=== PATIENT | female | born 1980 | race Caucasian/White ===

== ENCOUNTER 2021-07-27 14:11 | Outpatient (REF) | payer OTHER, SELFPAY ==
[2021-07-27 15:02] LABS: Influenza A PCR NEGATIVE (Negative); Influenza B PCR NEGATIVE (Negative); Resp Syncy Virus RNA Qual PCR NEGATIVE (Negative); SARS COV2 PCR INHOUSE NEGATIVE (Negative)
== END 2021-07-27 14:12 | disposition home or self-care (01) ==
LOC: HO.LNP 14:11
PROVIDERS: Visit Provider Physician Assistant Medical
DX: N39.0 Urinary tract infection, site not specified (principal); J06.9 Acute upper respiratory infection, unspecified; R30.0 Dysuria; Z20.822 Contact with and (suspected) exposure to COVID-19
CPT/HCPCS: 0241U; 87086

== ENCOUNTER 2021-11-10 14:53 | Emergency (ER) | payer OTHER, SELFPAY ==
--- NOTE | 2021-11-10 | ECG_ITS ---
Test Reason : dizziness Blood Pressure : / mmHG Vent. Rate : 083 BPM Atrial Rate : 083 BPM P-R Int : 142 ms QRS Dur : 100 ms QT Int : 382 ms P-R-T Axes : 054 -26 052 degrees QTc Int : 448 ms Normal sinus rhythm Incomplete right bundle branch block Borderline ECG No previous ECGs available Referred By: Generic ED Physician Electronically Signed By:Ender Charles
--- NOTE | ~2021-11-10 | XR_ITS ---
EXAMINATION: XR CHEST CLINICAL INFORMATION: Dizziness. COMPARISON: None TECHNIQUE: 2 views of the chest were obtained. FINDINGS: No significant abnormality is noted involving the heart, lungs, mediastinum, bony thorax or soft tissues. XR/XR chest 2V IMPRESSION: Unremarkable chest examination.
--- NOTE | ~2021-11-10 | CT_ITS ---
EXAMINATION: CT HEAD WITHOUT CONTRAST CLINICAL INFORMATION: Dizziness COMPARISON: None TECHNIQUE: Contiguous axial imaging was performed from the skull base to vertex without intravenous administration of contrast. This CT examination was performed using dose optimization techniques as appropriate, variously including the following: *Automated exposure control *Adjustment of mA and/or kV according to patient size (this includes techniques or standardized protocols for targeted exams where dose is matched to indication/reason for exam; i.e. extremities or head) *Use of iterative reconstruction technique DLP: 739 mGy-cm FINDINGS: There is no evidence of acute intracranial hemorrhage or territorial infarction. No abnormal mass effect or midline shift is seen. Cole to white matter differentiation is well preserved. No extra-axial fluid collections are identified. The ventricles are normal in size. There is no abnormal attenuation within the brain parenchyma. The osseous structures and soft tissues are normal. Left maxillary sinus air-fluid level. Remaining visualized mastoid air cells and paranasal sinuses are clear. CT/CT head/brain wo con IMPRESSION: No acute intracranial pathology. Left maxillary sinus air-fluid level could reflect acute sinusitis.
[2021-11-10 16:28] LABS: MANUAL DIFF FLAG NO
[2021-11-10 16:30] LABS: Basophils Percent Auto 0.3 % (0-2); Eosinophils Absolute Auto 0.2 X10*3/uL (0.0-0.4); Eosinophils Percent Auto 1.8 % (0-4); Hematocrit 38.6 % (37.0-47.0); Hemoglobin 12.3 g/dl (12.0-16.0); Imm Gran Abs Auto 0.05 X10*3/uL (0.00-0.03); Imm Gran Pct Auto 0.4 % (0.0-0.4); Lymphocytes Absolute Auto 3.1 X10*3/uL (1.2-4.9); Lymphocytes Percent Auto 27.9 % (20-40); Mean Corpuscular HGB Conc 31.9 g/dl (31.0-35.0); Mean Corpuscular Volume 84.6 fL (80.0-98.0); Mean Platelet Volume 9.4 fL (9.4-12.3); Monocytes Absolute Auto 0.7 X10*3/uL (0.1-1.2); Monocytes Percent Auto 6.2 % (2-11); Neutrophils Absolute Auto 7.1 x10*3/uL (2.0-8.3); Neutrophils Percent Auto 63.4 % (45-73); Platelet Count 365 X10*3/uL (160-400); Red Blood Count 4.56 X10*6/uL (4.20-5.50); Red Cell Distribution Width 14.3 % (11.0-16.0); White Blood Count 11.1 X10*3/uL (4.8-10.8)
[2021-11-10 16:33] VITALS: BP 147/92; PULSE 91; RESP 18; TEMP 36.8; O2SAT 95; BMI 34.3
[2021-11-10 16:50] LABS: Anion Gap 14 (12-20); Blood Urea Nitrogen 19 mg/dL (9-16); Calcium 9.3 mg/dL (8.4-10.2); Carbon Dioxide 26 mmol/L (22-29); Chloride 103 mmol/L (96-108); Creatinine Clr Calc Pharmacy 97.7; Estimated Glomerular Filt Rate > 60; Glucose Random 137 mg/dL (60-115); Potassium 4.3 mmol/L (3.3-5.1); Sodium 139 mmol/L (135-145)
[2021-11-10 16:56] LABS: Troponin-I High Sensitivity < 3.5 ng/L (<3.5-17.0)
--- NOTE | 2021-11-10 19:19 | ED.DIZZY ---
HPI - Dizziness General Chief Complaint: Dizziness Stated Complaint: Dizziness Time Seen by Provider: 11/10/21 19:18 Source: patient and family (Mother) Mode of arrival: ambulatory Limitations: no limitations History of Present Illness HPI Narrative: 41 years old female came in for evaluation of dizziness. Patient's symptoms started 3 days ago as dizziness which is feeling unbalanced specially with changing position, patient been having also headache since she has been in the ED for 6 hours. Feels nauseous but no vomiting, no ear problems, no weakness or numbness otherwise. No family history of stroke at young age. Related Data Previous Rx's Medication Instructions Recorded lorazepam 1 mg tablet (Ativan) 1 mg PO DAILY PRN #30 tab 10/03/20 benzonatate 100 mg capsule 100 mg PO TID PRN #30 cap 07/27/21 prednisone 50 mg tablet 50 mg PO DAILY 5 Days #5 tab 07/27/21 venlafaxine 150 mg 150 mg PO BEDTIME #90 cap 08/29/21 capsule,extended release 24 hr dextroamphetamine-amphetamine 10 10 mg PO BID PRN #60 tab 09/11/21 mg tablet (Adderall) dextroamphetamine-amphetamine ER 30 mg PO QAM #30 cap 09/11/21 30 mg 24hr capsule,extend release (Adderall XR) amoxicillin 875 mg-potassium 1 tab PO BID #14 tab 11/10/21 clavulanate 125 mg tablet meclizine 25 mg tablet 25 mg PO BID PRN #14 tab 11/10/21 meclizine 25 mg tablet 25 mg PO BID PRN #20 tab 11/10/21 Allergies Allergy/AdvReac Type Severity Reaction Status Date / Time No Known Allergies Allergy Verified 07/27/21 11:24 Review of Systems Review of Systems: All other systems are reviewed and are negative Constitutional: Reports as per HPI and Reports no additional constitutional complaints Eyes: Reports as per HPI and Reports no additional eye complaints Reports system reviewed and no additional complaints, except as documented Cardiovascular: Reports as per HPI and Reports no additional cardiovascular complaints Respiratory: Reports as per HPI and Reports no additional respiratory complaints Gastrointestinal: Reports as per HPI and Reports no additional gastrointestinal complaints Genitourinary: Reports no additional female genitourinary complaints Musculoskeletal: Reports no additional musculoskeletal complaints Skin/Breast: Reports system reviewed and no additional complaints, except as docu Psychiatric: Reports no additional psychiatric complaints Endocrine: Reports no additional endocrine complaints Hematologic/Lymphatic: Reports no additional hematologic/lymphatic complaints Allergic/Immunologic: Reports no additional allergic/immunologic complaints Reports system reviewed and no additional complaints, except as documented and Reports Abnormal speech present [facility] Past Medical History Medical History ADHD Anxiety and depression Obesity TIA (transient ischemic attack) Tobacco abuse Surgical History History of prior ablation treatment LAP-BAND surgery status Family History Family History Father Myocardial infarction History of quadruple bypass CKD (chronic kidney disease) Mother Healthy adult Paternal Grandmother Liver cancer Maternal Aunt Melanoma Maternal Grandmother Stroke Liver cancer Paternal Grandfather Myocardial infarction Social History Social History Housing: House Patient Tobacco Use Status: Current everyday Tobacco user e-Cigarette/Vaping Use: Never Used Second Hand Smoke Exposure: No Advance Directives: No Advance Directives Information Provided: Yes Patient : No service: No Current occupational status: employed Physical Exam Vital Signs: Vital Signs: Last Vital Signs Temp 98.2 F 11/10/21 16:33 Pulse 76 11/10/21 20:09 Resp 18 11/10/21 20:09 BP 127/71 11/10/21 20:09 Pulse Ox 98 11/10/21 20:09 BMI result Body Mass Index 34.3 Vital signs have been reviewed as appeared to be correct. Blood pressure normal. Heart rate normal. Respiration rate normal. Temperature normal. Oxygen saturation normal. Appearance: Alert. Oriented X3. No acute distress. Head: Normal external exam. Normocephalic. Atraumatic. No Best signs noted. No raccoon eyes noted Eyes: PERRLA. EOMI. Conjunctiva and sclera normal. Eyelids normal. ENT: TM's Normal. Pharynx normal. Uvula midline. Moist mucous membranes. No trismus noted. No drooling noted. No muffled voice noted. Neck: Normal inspection. Neck supple. FROM. No adenopathy. Thyroid Normal. No meningeal signs. No neck mass noted. CVS: Normal heart rate and rhythm. Heart sound normal. No murmurs noted. Pulses normal throughout. Respiratory: No respiratory distress. Painless inspiration. Breath sounds normal. No wheezes/rales/rhonchi noted. Chest nontender. No accessory muscle usage noted or decreased air movement noted. Abdomen: Soft and nontender. Bowel sounds normal in all 4 quadrants. No distention noted. No organomegaly noted. No visible injury noted. Back: No CVA tenderness. Full range of motion noted. Skin: Skin warm and dry. Normal skin color. Normal skin turgor. No rashes/lesions/lacerations noted. Extremities: No lower extremity edema. Extremities exhibit normal range of motion. Extremities nontender. Neuro: Oriented X 3. No nystagmus Cranial nerve exam: II-XII are grossly intact No motor deficit. No sensory deficit. Reflexes normal. No [id number] dysmetria test, able to walk steady gait, able to walk toe to heal with steady gait. Patient feels dizzy if she quickly turn her head or change her position on exam. Course Course Course Narrative: Assessment and plan. 41-year-old female with no past medical history presented with 3 days of feeling dizzy and unbalanced, has a normal neuro exam, normal head CT, MRI is not available in this facility at this time. However given patient age and physical/neuro exam making posterior circulation problem is unfavorable. CT is showing possible left maxillary sinusitis. Will discharge the patient on Augmentin/meclizine/3 days off work for safety. [facility] - Dizziness Medical Records Attestation: I reviewed the patient's medical records. Lab Data Attestation: I reviewed the patient's lab results. Result diagrams: 11/10/21 16:13 11/10/21 16:13 Labs: Lab Results 11/10/21 11/10/21 11/10/21 Range/Units 16:13 16:13 16:13 WBC 11.1 H (4.8-10.8) X10*3/uL RBC 4.56 (4.20-5.50) X10*6/uL Hgb 12.3 (12.0-16.0) g/dl Hct 38.6 (37.0-47.0) % MCV 84.6 (80.0-98.0) fL MCH 27.0 (27.0-33.0) pg MCHC 31.9 (31.0-35.0) g/dl RDW 14.3 (11.0-16.0) % Plt Count 365 (160-400) X10*3/uL MPV 9.4 (9.4-12.3) fL Immature Gran % (Auto) 0.4 (0.0-0.4) % Neut % (Auto) 63.4 (45-73) % Lymph % (Auto) 27.9 (20-40) % [place] % (Auto) 6.2 (2-11) % Eos % (Auto) 1.8 (0-4) % Baso % (Auto) 0.3 (0-2) % Lymph # (Auto) 3.1 (1.2-4.9) X10*3/uL [place] # (Auto) 0.7 (0.1-1.2) X10*3/uL Eos # (Auto) 0.2 (0.0-0.4) X10*3/uL Baso # (Auto) 0.0 (0.0-0.2) X10*3/uL Abs Immat Gran (auto) 0.05 H (0.00-0.03) X10*3/uL Absolute Neuts (auto) 7.1 (2.0-8.3) x10*3/uL Absolute Nucleated RBC 0.000 (0.0-0.012) X10*3/uL Nucleated RBC % (auto) 0.0 (0.0-0.2) /100WBC Sodium 139 (135-145) mmol/L Potassium 4.3 (3.3-5.1) mmol/L Chloride 103 (96-108) mmol/L Carbon Dioxide 26 (22-29) mmol/L Anion Gap 14 (12-20) BUN 19 H (9-16) mg/dL Creatinine 0.81 (0.5-1.4) mg/dL Estim Creat Clear Calc 97.7 Estimated GFR > 60 Random Glucose 137 H (60-115) mg/dL Calcium 9.3 (8.4-10.2) mg/dL Troponin I High Sens < 3.5 (<3.5-17.0) ng/L Urine Color Urine Appearance Urine pH (5.0-8.0) Ur Specific [place] (1.005-1.025) Urine Protein (NEG-TRACE) MG/DL Urine Glucose (UA) (NEG) MG/DL Urine Ketones (NEG) MG/DL Urine Blood (NEG) Urine Nitrite (NEG) Ur Leukocyte Esterase (NEG) Urine Test (NEGATIVE) 11/10/21 11/10/21 Range/Units 20:00 20:00 WBC (4.8-10.8) X10*3/uL RBC (4.20-5.50) X10*6/uL Hgb (12.0-16.0) g/dl Hct (37.0-47.0) % MCV (80.0-98.0) fL MCH (27.0-33.0) pg MCHC (31.0-35.0) g/dl RDW (11.0-16.0) % Plt Count (160-400) X10*3/uL MPV (9.4-12.3) fL Immature Gran % (Auto) (0.0-0.4) % Neut % (Auto) (45-73) % Lymph % (Auto) (20-40) % [place] % (Auto) (2-11) % Eos % (Auto) (0-4) % Baso % (Auto) (0-2) % Lymph # (Auto) (1.2-4.9) X10*3/uL [place] # (Auto) (0.1-1.2) X10*3/uL Eos # (Auto) (0.0-0.4) X10*3/uL Baso # (Auto) (0.0-0.2) X10*3/uL Abs Immat Gran (auto) (0.00-0.03) X10*3/uL Absolute Neuts (auto) (2.0-8.3) x10*3/uL Absolute Nucleated RBC (0.0-0.012) X10*3/uL Nucleated RBC % (auto) (0.0-0.2) /100WBC Sodium (135-145) mmol/L Potassium (3.3-5.1) mmol/L Chloride (96-108) mmol/L Carbon Dioxide (22-29) mmol/L Anion Gap (12-20) BUN (9-16) mg/dL Creatinine (0.5-1.4) mg/dL Estim Creat Clear Calc Estimated GFR Random Glucose (60-115) mg/dL Calcium (8.4-10.2) mg/dL Troponin I High Sens (<3.5-17.0) ng/L Urine Color YELLOW Urine Appearance CLEAR Urine pH 5.5 (5.0-8.0) Ur Specific [place] >= 1.030 H (1.005-1.025) Urine Protein NEG (NEG-TRACE) MG/DL Urine Glucose (UA) NEG (NEG) MG/DL Urine Ketones NEG (NEG) MG/DL Urine Blood NEG (NEG) Urine Nitrite NEG (NEG) Ur Leukocyte Esterase NEG (NEG) Urine Test NEGATIVE (NEGATIVE) Imaging Data Chest x-ray: Attestation: I personally reviewed and interpreted this imaging study as follows: Radiologist's impression: Unremarkable chest examination. CT scan - head: Attestation: I personally reviewed and interpreted this imaging study as follows: Radiologist's impression: No acute intracranial pathology. ?Left maxillary sinus air-fluid level could reflect acute sinusitis. ECG Data Attestation: I personally reviewed and interpreted this ECG as follows: Interpretation: Normal sinus rhythm at 83 beats per minutes, normal intervals, no ST-T changes. Discharge Plan Discharge Clinical Impression: Peripheral vertigo, Acute maxillary sinusitis Patient Disposition: Home, Self-Care Instructions: Sinusitis (ED), Vertigo (ED) Prescriptions: New amoxicillin-pot clavulanate 875-125 mg tablet 1 tab PO BID Qty: 14 0RF meclizine 25 mg tablet 25 mg PO BID PRN (Reason: dizziness) Qty: 20 0RF meclizine 25 mg tablet 25 mg PO BID PRN (Reason: dizziness) Qty: 14 0RF No Action lorazepam [Ativan] 1 mg tablet 1 mg PO DAILY PRN (Reason: anxiety) Qty: 30 0RF Rx Instructions: 1-2 a month venlafaxine 150 mg capsule,extended release 24hr 150 mg PO BEDTIME Qty: 90 0RF dextroamphetamine-amphetamine [Adderall] 10 mg tablet 10 mg PO BID PRN (Reason: ADHD) Qty: 60 0RF Rx Instructions: administer doses at least 4-6 hours apart dextroamphetamine-amphetamine [Adderall XR] 30 mg capsule,extended release 24hr 30 mg PO QAM Qty: 30 0RF prednisone 50 mg tablet 50 mg PO DAILY 5 Days Qty: 5 0RF benzonatate 100 mg capsule 100 mg PO TID PRN (Reason: cough) Qty: 30 0RF Referrals: Po,Cullen Russell MD [Primary Care Provider] - 2 days Stand Alone Forms: Work/School Release
[2021-11-10] MEDS: Meclizine HCl 25 MG TABLET 50 MG PO (19:56)
[2021-11-10 20:07] LABS: Appearance Urine CLEAR; Color Urine YELLOW; Glucose Urine UA NEG (NEG); Leukocyte Esterase Urine NEG (NEG); Nitrite Urine NEG (NEG); PH 5.5 (5.0-8.0); Specific Gravity - Urine >= 1.030 (1.005-1.025); Urine Blood NEG (NEG); Urine Ketones NEG (NEG); Urine Protein NEG (NEG-TRACE)
[2021-11-10 20:09] VITALS: BP 127/71; PULSE 76; RESP 18; O2SAT 98
[2021-11-10 20:11] LABS: UPreg QC Valid YES; Urine Pregnancy NEGATIVE (NEGATIVE)
[2021-11-10] MEDS: Acetaminophen 325 MG TABLET 650 MG PO (20:38)
[2021-11-10] MEDS: Amoxicillin/Potassium Clav 875 MG TABLET PO (20:58)
== END 2021-11-10 21:11 | disposition home or self-care (01) ==
PROVIDERS: Emergency Provider Emergency Medicine; PCP Internal Medicine
DX: H81.399 Other peripheral vertigo, unspecified ear (principal); J01.00 Acute maxillary sinusitis, unspecified; F17.200 Nicotine dependence, unspecified, uncomplicated
CPT/HCPCS: 36415; 70450; 71046; 80048; 81003; 81025; 84484; 85025; 93005; 99284

== ENCOUNTER 2022-02-09 16:44 | Inpatient (IN) | payer OTHER, SELFPAY ==
--- NOTE | ~2022-02-09 | XR_ITS ---
EXAMINATION: XR CHEST CLINICAL INFORMATION: Dyspnea COMPARISON: Chest radiograph 11/10/2021 TECHNIQUE: Frontal view of the chest was obtained. FINDINGS: Clear lungs. No pleural effusion or pneumothorax. Normal cardiomediastinal silhouette. XR/XR chest 1V IMPRESSION: Unremarkable examination.
[2022-02-09 17:02] VITALS: BP 134/94; PULSE 92; RESP 26; TEMP 36.7; O2SAT 95; BMI 34.3
--- NOTE | 2022-02-09 17:07 | ECG_ITS ---
Test Reason : dyspnea Blood Pressure : / mmHG Vent. Rate : 082 BPM Atrial Rate : 082 BPM P-R Int : 140 ms QRS Dur : 100 ms QT Int : 372 ms P-R-T Axes : 053 -14 062 degrees QTc Int : 434 ms Normal sinus rhythm Incomplete right bundle branch block Borderline ECG When compared with ECG of 10-NOV-2021 16:12, No significant change was found Referred By: Generic ED Physician Electronically Signed By:KLAUDIA BASS MD
[2022-02-09 17:27] LABS: Hematocrit 39.4 % (37.0-47.0); Hemoglobin 12.8 g/dl (12.0-16.0); Mean Corpuscular HGB Conc 32.5 g/dl (31.0-35.0); Mean Corpuscular Hemoglobin 26.4 pg (27.0-33.0); Mean Corpuscular Volume 81.4 fL (80.0-98.0); Mean Platelet Volume 9.3 fL (9.4-12.3); Platelet Count 370 X10*3/uL (160-400); Red Blood Count 4.84 X10*6/uL (4.20-5.50); Red Cell Distribution Width 15.2 % (11.0-16.0); White Blood Count 6.9 X10*3/uL (4.8-10.8)
[2022-02-09 17:43] LABS: Anion Gap 15 (12-20); Blood Urea Nitrogen 13 mg/dL (9-16); Carbon Dioxide 23 mmol/L (22-29); Chloride 104 mmol/L (96-108); Creatinine Clr Calc Pharmacy 85.1; Estimated Glomerular Filt Rate > 60; Glucose Random 174 mg/dL (60-115); Potassium 3.4 mmol/L (3.3-5.1); Sodium 139 mmol/L (135-145)
[2022-02-09 17:50] LABS: Troponin-I High Sensitivity 3.5 ng/L (<3.5-17.0)
[2022-02-09 17:52] LABS: COVID-19 Test Negative (Negative)
--- NOTE | 2022-02-09 18:52 | ED.SOB ---
HPI - SOB/Dyspnea General Chief Complaint: Dyspnea Stated Complaint: SOB/chest pains Time Seen by Provider: 02/09/22 18:50 Source: patient Mode of arrival: ambulatory History of Present Illness HPI Narrative: 41-year-old female without significant past medical history presents with increasing shortness of breath since Tuesday and states that it was acute on onset not associated with any fever, chills, recent travel, use of control, calf swelling but states that she does occasionally smoke cigarettes. Otherwise, she denies any GI or symptoms and states that she COVID tested herself on Tuesday and she was negative. Related Data Previous Rx's Medication Instructions Recorded amoxicillin 875 mg-potassium 1 tab PO BID #14 tabs 11/10/21 clavulanate 125 mg tablet meclizine 25 mg tablet 25 mg PO BID PRN dizziness #20 tabs 11/10/21 dextroamphetamine-amphetamine ER 30 mg PO QAM #30 caps 11/16/21 30 mg 24hr capsule,extend release (Adderall XR) lorazepam 1 mg tablet (Ativan) 1 mg PO DAILY PRN anxiety #30 tabs 11/16/21 terbinafine HCl 250 mg tablet 250 mg PO DAILY #45 tabs 11/16/21 venlafaxine 150 mg 150 mg PO BEDTIME #90 caps 12/07/21 capsule,extended release 24 hr albuterol sulfate 90 mcg/actuation 2 puff inhalation Q6H PRN 02/09/22 aerosol inhaler (ProAir HFA) shortness of breath or wheezing 90 days #8.5 grams albuterol sulfate 90 mcg/actuation 2 puff inhalation Q4-6H PRN 02/09/22 aerosol inhaler (Ventolin HFA) shortness of breath or wheezing #8.5 grams dextroamphetamine-amphetamine 10 10 mg PO BID PRN ADHD #60 tabs 02/09/22 mg tablet (Adderall) prednisone 50 mg tablet 50 mg PO DAILY 4 days #4 tabs 02/09/22 Allergies Allergy/AdvReac Type Severity Reaction Status Date / Time No Known Allergies Allergy Verified 11/16/21 09:35 Review of Systems Review of Systems: Pertinent positives and negatives as stated in HPI 10 point review of systems is otherwise negative. [facility] Past Medical History Source: nursing notes reviewed Medical History TIA (transient ischemic attack) Surgical History History of prior ablation treatment History of tooth extraction LAP-BAND surgery status Family History Family History Father Myocardial infarction History of quadruple bypass CKD (chronic kidney disease) Mother Healthy adult Paternal Grandmother Liver cancer Maternal Aunt Melanoma Maternal Grandmother Stroke Liver cancer Paternal Grandfather Myocardial infarction Social History Social History Housing: House Alcohol intake: current Alcohol intake frequency: holidays/special occasions only Patient Tobacco Use Status: Current everyday Tobacco user Tobacco use type: Cigarette Cigarettes Per Day: 5 e-Cigarette/Vaping Use: Never Used Second Hand Smoke Exposure: Yes Advance Directives: No Advance Directives Information Provided: No service: No Current occupational status: employed Cognitive needs: No Hearing needs: No Vision needs: No Physical Exam Vital Signs: Vital Signs: Last Vital Signs Temp 98.1 F 02/09/22 19:08 Pulse 89 02/09/22 19:15 Resp 18 02/09/22 19:15 BP 149/90 H 02/09/22 19:08 Pulse Ox 96 02/09/22 19:08 O2 Del Method 02/09/22 19:08 BMI result Body Mass Index 34.3 VITAL SIGNS: Reviewed. GENERAL: Well developed, well nourished, in no acute distress. HEAD: Normocephalic/atraumatic EYES: PERRLA, EOMI EARS: Ext canals without abnormality OROPHARYNX: no oral lesions noted, posterior pharynx clear LUNGS: good inspiratory effort with expiratory wheeze noted bilaterally, no rhonchi or rales with tachypnea. SpO2<95> On 1 L of oxygen CARDIOVASCULAR: Regular rate and rhythm without noted murmurs, no JVD or lower extremity edema. ABDOMEN: Soft, non-tender, non-distended with bowel sounds. NEUROLOGIC: Alert and oriented x 4. Strength and sensation to light touch were grossly intact x 4. Course Course Course Narrative: 41-year-old female with history and clinical presentation suggestive of possible asthma exacerbation in the right setting, she does have a history of bronchitis, due to the acute onset also will rule out PE. Otherwise, review of initial investigations is negative for acute findings. D-dimer further cooperates the on likelihood of PE, will continue with albuterol treatments/Solu-Medrol and suspect that patient may have some underlying component of COPD. Sign out to DR Salinas MDM - SOB/Dyspnea Lab Data Result diagrams: 02/09/22 17:14 02/09/22 17:14 Labs: Lab Results 02/09/22 02/09/22 02/09/22 Range/Units 17:14 17:14 17:14 WBC 6.9 (4.8-10.8) X10*3/uL RBC 4.84 (4.20-5.50) X10*6/uL Hgb 12.8 (12.0-16.0) g/dl Hct 39.4 (37.0-47.0) % MCV 81.4 (80.0-98.0) fL MCH 26.4 L (27.0-33.0) pg MCHC 32.5 (31.0-35.0) g/dl RDW 15.2 (11.0-16.0) % Plt Count 370 (160-400) X10*3/uL MPV 9.3 L (9.4-12.3) fL Absolute Nucleated RBC 0.000 (0.0-0.012) X10*3/uL Nucleated RBC % (auto) 0.0 (0.0-0.2) /100WBC D-Dimer High Sensitivty NG/ML Sodium 139 (135-145) mmol/L Potassium 3.4 D (3.3-5.1) mmol/L Chloride 104 (96-108) mmol/L Carbon Dioxide 23 (22-29) mmol/L Anion Gap 15 (12-20) BUN 13 (9-16) mg/dL Creatinine 0.93 (0.5-1.4) mg/dL Estim Creat Clear Calc 85.1 Estimated GFR > 60 Random Glucose 174 H (60-115) mg/dL Calcium 9.0 (8.4-10.2) mg/dL Troponin I High Sens 3.5 (<3.5-17.0) ng/L B-Natriuretic Peptide 13 (<100) pg/mL COVID-19 ([facility]) (Negative) COVID-19 Clin Com 02/09/22 02/09/22 Range/Units 17:14 19:28 WBC (4.8-10.8) X10*3/uL RBC (4.20-5.50) X10*6/uL Hgb (12.0-16.0) g/dl Hct (37.0-47.0) % MCV (80.0-98.0) fL MCH (27.0-33.0) pg MCHC (31.0-35.0) g/dl RDW (11.0-16.0) % Plt Count (160-400) X10*3/uL MPV (9.4-12.3) fL Absolute Nucleated RBC (0.0-0.012) X10*3/uL Nucleated RBC % (auto) (0.0-0.2) /100WBC D-Dimer High Sensitivty 222 NG/ML Sodium (135-145) mmol/L Potassium (3.3-5.1) mmol/L Chloride (96-108) mmol/L Carbon Dioxide (22-29) mmol/L Anion Gap (12-20) BUN (9-16) mg/dL Creatinine (0.5-1.4) mg/dL Estim Creat Clear Calc Estimated GFR Random Glucose (60-115) mg/dL Calcium (8.4-10.2) mg/dL Troponin I High Sens (<3.5-17.0) ng/L B-Natriuretic Peptide (<100) pg/mL COVID-19 ([facility]) Negative (Negative) COVID-19 Clin Com See Note Discharge Plan Discharge Clinical Impression: Asthma exacerbation Patient Disposition: Still a Patient Instructions: Asthma (ED), How to Stop Smoking (ED) Additional Instructions: complete course of steroids. Follow-up with primary care provider. Return to the ER for worsening symptoms. Prescriptions: New prednisone 50 mg tablet 50 mg PO DAILY 4 Days Qty: 4 0RF albuterol sulfate [Ventolin HFA] 90 mcg/actuation HFA aerosol inhaler 2 puff inhalation Q4-6H PRN (Reason: shortness of breath or wheezing) Qty: 8.5 0RF No Action venlafaxine 150 mg capsule,extended release 24hr 150 mg PO BEDTIME Qty: 90 0RF albuterol sulfate [ProAir HFA] 90 mcg/actuation HFA aerosol inhaler 2 puff inhalation Q6H PRN (Reason: shortness of breath or wheezing) 90 Days Qty: 8.5 0RF dextroamphetamine-amphetamine [Adderall] 10 mg tablet 10 mg PO BID PRN (Reason: ADHD) Qty: 60 0RF Rx Instructions: administer doses at least 4-6 hours apart amoxicillin-pot clavulanate 875-125 mg tablet 1 tab PO BID Qty: 14 0RF meclizine 25 mg tablet 25 mg PO BID PRN (Reason: dizziness) Qty: 20 0RF dextroamphetamine-amphetamine [Adderall XR] 30 mg capsule,extended release 24hr 30 mg PO QAM Qty: 30 0RF lorazepam [Ativan] 1 mg tablet 1 mg PO DAILY PRN (Reason: anxiety) Qty: 30 0RF Rx Instructions: 1-2 a month terbinafine HCl 250 mg tablet 250 mg PO DAILY Qty: 45 0RF Referrals: Po,Cullen Russell MD [Primary Care Provider] -
[2022-02-09 19:08] VITALS: BP 149/90; PULSE 92; RESP 18; TEMP 36.7; O2SAT 96
--- NOTE | 2022-02-09 19:09 | PC.NURSE ---
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 alert and oriented.
[2022-02-09 19:14] LABS: B Type Natriuretic Peptide 13 pg/mL (<100)
[2022-02-09 19:15] VITALS: PULSE 89; RESP 18; O2SAT 96
[2022-02-09] MEDS: Albuterol Sulfate (0.083%) 2.5 MG/3 ML VIAL.NEB 5 MG INHALE ×2 (19:15→23:23)
[2022-02-09 19:42] LABS: D Dimer High Sensitivity 222 NG/ML
[2022-02-09 20:56] VITALS: PULSE 89; RESP 18; O2SAT 96
[2022-02-09] MEDS: Albuterol Sulfate (0.083%) 2.5 MG/3 ML VIAL.NEB 10 MG INHALE (20:56)
[2022-02-09 22:00] VITALS: BP 162/83; PULSE 105; RESP 22; O2SAT 93
[2022-02-09] MEDS: Magnesium Sulfate/H2O 2 GM/50 ML PIGGYBACK IV (22:10)
[2022-02-09] MEDS: methylPREDNISolone Sod Succ 125 MG/2 ML VIAL IVPUSH (22:10)
--- NOTE | 2022-02-09 23:19 | PM.IMHP ---
History of Present Illness Date of Service: 02/09/22 Chief Complaint: Shortness of breath 41-year-old female with a past medical history of asthma, TA presented to the hospital today with a chief complaint of shortness of breath. Patient reports that over the past couple days she has been having shortness of breath associated with the cough; denies any fevers. Symptoms have been gradually worsening hence decided to come to the ER for further evaluation. Patient reports that she tries or home inhalers with no significant improvement. Denies any fever chills cough. Denies any triggering factors Denies any recent travel or sick contacts. Denies any chest pain or palpitations. Review of all other systems is negative except mentioned above ER course: Per ER team patient noted to be audibly wheezing on presentation; patient was given nebulizer treatments and steroids; later on ambulation patient noted to be desaturating to 88-89% on room air; subsequently placed on supplemental oxygen; and still noted to be wheezing. Hence decided to admit to the hospital for further management PMFSH Medical History TIA (transient ischemic attack) Family History Father Myocardial infarction History of quadruple bypass CKD (chronic kidney disease) Mother Healthy adult Paternal Grandmother Liver cancer Maternal Aunt Melanoma Maternal Grandmother Stroke Liver cancer Paternal Grandfather Myocardial infarction Surgical History History of prior ablation treatment History of tooth extraction LAP-BAND surgery status Social History Housing: House Alcohol intake: current Alcohol intake frequency: holidays/special occasions only Patient Tobacco Use Status: Current everyday Tobacco user Tobacco use type: Cigarette Cigarettes Per Day: 5 e-Cigarette/Vaping Use: Never Used Second Hand Smoke Exposure: Yes Advance Directives: No Advance Directives Information Provided: No service: No Current occupational status: employed Cognitive needs: No Hearing needs: No Vision needs: No Meds Allergies Allergy/AdvReac Type Severity Reaction Status Date / Time No Known Allergies Allergy Verified 11/16/21 09:35 Active Medications: Current Medications Acetaminophen (Acetaminophen 325 Mg Tablet) 650 mg PO Q6H PRN PRN Reason: Pain, Mild (Pain Scale 1-3) Albuterol/Ipratropium (Albuterol/Iprat 2.5/0.5mg 3 Ml Ampul.Neb) 3 ml INHALE RQ4H WHILE AWAKE [facility] Albuterol/Ipratropium (Albuterol/Iprat 2.5/0.5mg 3 Ml Ampul.Neb) 3 ml INHALE RQ4H PRN PRN Reason: Shortness of Breath/Wheezing Benzonatate (Benzonatate 100 Mg Capsule) 100 mg PO TID PRN PRN Reason: Cough Enoxaparin Sodium (Enoxaparin Sodium 40 Mg/0.4 Ml Syringe) 40 mg SUBCUT Q24H [facility] Melatonin (Melatonin 3 Mg Tablet) 6 mg PO BEDTIME PRN PRN Reason: Insomnia Methylprednisolone Sodium Succinate (Methylprednisolone Sod Succ 40 Mg/Ml Vial) 40 mg IVPUSH Q6H [facility] Morphine Sulfate (Morphine Sulfate 4 Mg/Ml Cartridge) 1 mg IVPUSH Q4H PRN; Protocol PRN Reason: Pain, SOB Senna (Sennosides 8.6 Mg Tablet) 17.2 mg PO BEDTIME PRN PRN Reason: Constipation Sodium Chloride (0.9 % Sodium Chloride Flush 3 Ml Syringe) 3 ml IVFLUSH QSHIFT [facility] Physical Exam Vital Signs and Narrative: Vital Signs: Last Vital Signs Temp 98.1 F 02/09/22 19:08 Pulse 105 H 02/09/22 22:00 Resp 22 H 02/09/22 22:00 BP 162/83 H 02/09/22 22:00 Pulse Ox 93 02/09/22 22:00 O2 Del Method 02/09/22 22:00 BMI result Body Mass Index 34.3 Gen: Appears be in no acute distress HEENT: NCAT, Moist mucosa. Pulmonary: Bilateral inspiratory and expiratory wheezing noted CVS: Normal S1-S2 Abdomen: BS+, Soft, Nontender Extremities: Warm well perfused Neuro: Alert and awake. Results Labs CBC and Chem 7: 02/09/22 17:14 02/09/22 17:14 Labs: Laboratory Results - last 24 hr 02/09/22 02/09/22 02/09/22 17:14 17:14 17:14 MCV 81.4 MCH 26.4 L MCHC 32.5 RDW 15.2 Plt Count 370 MPV 9.3 L Absolute Nucleated RBC 0.000 Nucleated RBC % (auto) 0.0 D-Dimer High Sensitivty Anion Gap 15 Estim Creat Clear Calc 85.1 Estimated GFR > 60 Random Glucose 174 H Calcium 9.0 Troponin I High Sens 3.5 B-Natriuretic Peptide 13 COVID-19 (BREANNE) COVID-19 Clin Com 02/09/22 02/09/22 17:14 19:28 MCV MCH MCHC RDW Plt Count MPV Absolute Nucleated RBC Nucleated RBC % (auto) D-Dimer High Sensitivty 222 Anion Gap Estim Creat Clear Calc Estimated GFR Random Glucose Calcium Troponin I High Sens B-Natriuretic Peptide COVID-19 (BREANNE) Negative COVID-19 Clin Com See Note Imaging Radiologist's Impressions: Impressions Chest X-Ray 02/09/22 17:39 IMPRESSION: Unremarkable examination. Assessment and Plan (1) Acute asthma exacerbation: Status: Acute Plan 41-year-old female with a past medical history of asthma, TIA presented to the hospital today with a chief complaint of shortness of breath. Noted to be in acute asthma exacerbation/hypoxia. Admitted for further management. Acute hypoxic respiratory failure: In the setting of acute asthma exacerbation. Not in respiratory distress. Placed on supplemental oxygen. Supportive care. Acute asthma exacerbation: Continue Solu-Medrol IV q.i.d. Nebulizations standing and p.r.n. Morphine p.r.n.. For all other chronic conditions, home medications continued. DVT prophylaxis: Lovenox Code status: Full code Quality Stroke Does the patient have a stroke diagnosis?: No VTE Prior VTE?: No VTE Risk Level:: Medical - moderate - high VTE Device Contraindication: Treatment Not Indicated VTE Drug Contraindication: N/A - Med Ordered
[2022-02-09 23:23] VITALS: PULSE 100; RESP 16; O2SAT 97
[2022-02-09] MEDS: Morphine Sulfate 4 MG/ML CARTRIDGE 1 MG IVPUSH (23:51)
[2022-02-09] MEDS: Enoxaparin Sodium 40 MG/0.4 ML SYRINGE SUBCUT (23:51)
[2022-02-09] MEDS: 0.9 % Sodium Chloride Flush 3 ML SYRINGE IVFLUSH (23:51)
[2022-02-10] VITALS (11 sets, daily range): BP systolic 154–203; BP diastolic 65–108; PULSE 77–110; RESP 17–26; TEMP 36.1–37; O2SAT 93–99; BMI 34.9
[2022-02-10] MEDS: methylPREDNISolone Sod Succ 40 MG/ML VIAL IVPUSH ×3 (04:47→20:55)
[2022-02-10] MEDS: Acetaminophen 325 MG TABLET 650 MG PO (04:53)
[2022-02-10] MEDS: Benzonatate 100 MG CAPSULE PO (04:53)
[2022-02-10 04:58] LABS: Basophils Percent Auto 0.1 % (0-2); Hematocrit 37.5 % (37.0-47.0); Hemoglobin 12.1 g/dl (12.0-16.0); Imm Gran Abs Auto 0.02 X10*3/uL (0.00-0.03); Imm Gran Pct Auto 0.2 % (0.0-0.4); Lymphocytes Absolute Auto 0.6 X10*3/uL (1.2-4.9); Lymphocytes Percent Auto 7.3 % (20-40); MANUAL DIFF FLAG SCAN; Mean Corpuscular HGB Conc 32.3 g/dl (31.0-35.0); Mean Corpuscular Hemoglobin 26.4 pg (27.0-33.0); Mean Corpuscular Volume 81.9 fL (80.0-98.0); Mean Platelet Volume 9.6 fL (9.4-12.3); Monocytes Absolute Auto 0.1 X10*3/uL (0.1-1.2); Monocytes Percent Auto 1.1 % (2-11); Neutrophils Absolute Auto 7.5 x10*3/uL (2.0-8.3); Neutrophils Percent Auto 91.3 % (45-73); Platelet Count 359 X10*3/uL (160-400); Red Blood Count 4.58 X10*6/uL (4.20-5.50); Red Cell Distribution Width 15.2 % (11.0-16.0); SCAN SMEAR FLAG 1; White Blood Count 8.2 X10*3/uL (4.8-10.8)
[2022-02-10 05:19] LABS: SLIDE REVIEW VERIFIED
[2022-02-10 05:22] LABS: Anion Gap 20 (12-20); Blood Urea Nitrogen 12 mg/dL (9-16); Calcium 8.8 mg/dL (8.4-10.2); Carbon Dioxide 20 mmol/L (22-29); Chloride 103 mmol/L (96-108); Creatinine Clr Calc Pharmacy 73.3; Estimated Glomerular Filt Rate 55; Glucose Random 424 mg/dL (60-115); Potassium 3.5 mmol/L (3.3-5.1); Sodium 139 mmol/L (135-145)
[2022-02-10 07:25] LABS: Glucose, Whole Blood 353 mg/dL (60-115)
[2022-02-10] MEDS: Albuterol/Iprat 2.5/0.5MG 3 ML AMPUL.NEB INHALE ×4 (07:54→20:24)
--- NOTE | 2022-02-10 08:39 | PHA.MEDREC ---
Pharmacy Consult ? Medication Reconciliation Pharmacy has completed the medication reconciliation. Patient is on albuterol but admits to not using it in years . Terbinafine is at her local pharmacy to be picked up, patient has not started it yet.
--- NOTE | 2022-02-10 09:07 | MHC.CM.PN ---
Attempted to meet with patient in regards to discharge planning. Patient not in room. No family present. Will attempt to meet again. Continue to monitor for d/c needs.
--- NOTE | 2022-02-10 09:10 | PC.NURSE ---
PT VERY AGGRESSING TOWARDS THIS RN, STATED SHE FELT ME ATTEMPTING TO DO TEACHING WAS PERCEIVED BEING RUDE. PT REFUSED ANY CARE, AND ASKED TO SPEAK WITH LEROY (SUPERVISION) LEROY IS AWARE AND HAS SPOKEN WITH THE PATIENT. PT IS GOING TO OVERFLOW REPORT GIVEN TO EKTA RN TO RESUME PATIENT CARE
[2022-02-10 09:25] LABS: Alanine Aminotransferase 30 U/L (0-31); Albumin Level 4.2 g/dL (3.5-5.0); Alkaline Phosphatase 68 U/L (39-117); Aspartate Amino Transferase 24 U/L (5-31); Bilirubin Direct < 0.2 mg/dL (0.0-0.5); Bilirubin Total 0.2 mg/dL (0.0-1.0); Cholesterol 171 mg/dL; HDL Cholesterol 28 mg/dL; LDL Cholesterol Calculated 110 mg/dl; Total Protein 7.3 g/dL (6.5-8.0); Triglycerides 165 mg/dL
[2022-02-10] MEDS: 0.9 % Sodium Chloride Flush 3 ML SYRINGE IVFLUSH ×3 (09:38→20:56)
[2022-02-10 09:42] LABS: Estimated Average Glucose 163 mg/dL; Hemoglobin A1c % 7.3 %
[2022-02-10] MEDS: Dextroamphetamine/Amphetamine XR 10 MG CAP.ER.24H 30 MG PO (11:22)
[2022-02-10] MEDS: Venlafaxine HCl ER 150 MG CAP.ER.24H PO (11:29)
[2022-02-10] MEDS: LORazepam 1 MG TABLET PO (12:34)
[2022-02-10] MEDS: Insulin Lispro 100 UNIT/ML 3 ML VIAL SUBCUT ×3 (12:35→20:55)
[2022-02-10 12:38] LABS: Glucose, Whole Blood 345 mg/dL (60-115)
--- NOTE | 2022-02-10 14:48 | MHC.CM.PN ---
Met with patient in regards to discharge planning. Patient lives with her 2 children, ambulates independently and had no services prior to coming to the hospital. No services anticipated to be needs because patient is not homebound. PCP verified. HCP completed, signed and witnessed. Patient received 2 Pfizer vaccines. Patient's mother will transport patient home when medically stable. Continue to monitor for d/c needs.
--- NOTE | 2022-02-10 15:39 | HO.PM.IMPN ---
Subjective Subjective Date of Service: 02/10/22 Interval History: cc: sob interval history:some improvement, but still sob Cardiovascular Cardiovascular: Reports no additional cardiovascular complaints Respiratory Respiratory: Reports no additional respiratory complaints Physical Exam Vital Signs: Vital Signs: Last Vital Signs Temp 97.0 F 02/10/22 09:18 Pulse 106 H 02/10/22 14:53 Resp 22 H 02/10/22 14:53 BP 170/89 H 02/10/22 14:53 Pulse Ox 94 02/10/22 14:53 O2 Del Method 02/10/22 14:53 O2 Flow Rate 3 02/10/22 00:03 BMI result Body Mass Index 34.3 General: AO X 3, no acute distress Resp: wheezing bilateral, no accessory muscles used CVS: S1,S2,RRR GI: soft, non tender, non distended Neuro: motor grossly intact, alert Psych: appropriate affect, appropriate insight Objective Data Active Medications Acetaminophen (Acetaminophen 325 Mg Tablet) 650 mg PO Q6H PRN PRN Reason: Pain, Mild (Pain Scale 1-3) Last Admin: 02/10/22 04:53 Dose: 650 mg Documented By: JOSE Albuterol/Ipratropium (Albuterol/Iprat 2.5/0.5mg 3 Ml Ampul.Neb) 3 ml INHALE RQ4H WHILE AWAKE [facility] Last Admin: 02/10/22 11:28 Dose: 3 ml Documented By: TIKI Albuterol/Ipratropium (Albuterol/Iprat 2.5/0.5mg 3 Ml Ampul.Neb) 3 ml INHALE RQ4H PRN PRN Reason: Shortness of Breath/Wheezing Amphetamine/Dextroamphetamine (Dextroamphetamine/Amphetamine Xr 10 Mg Cap.Er.24h) 30 mg PO DAILY [facility] Last Admin: 02/10/22 11:22 Dose: 30 mg Documented By: LILIA Amphetamine/Dextroamphetamine (Amphetamine Mixed Salts 10 Mg Tablet) 10 mg PO BID@0900,1200 [facility] Last Admin: 02/10/22 12:36 Dose: Not Given Documented By: EMEKA Non-Admin Reason: See Note Benzonatate (Benzonatate 100 Mg Capsule) 100 mg PO TID PRN PRN Reason: Cough Last Admin: 02/10/22 04:53 Dose: 100 mg Documented By: JOSE Dextrose (Dextrose 50 % 25 Gm/50 Ml Syringe) 25 gm IVPUSH Q15M PRN; Protocol PRN Reason: per Hypoglycemia Standing Ord. Enoxaparin Sodium (Enoxaparin Sodium 40 Mg/0.4 Ml Syringe) 40 mg SUBCUT Q24H [facility] Last Admin: 02/09/22 23:51 Dose: 40 mg Documented By: JOSE Glucose (Glucose Gel 15 Gm Gel..Gram.) 15 gm PO Q15M PRN; Protocol PRN Reason: per Hypoglycemia Standing Ord. Insulin Human Lispro (Insulin Lispro 100 Unit/Ml 3 Ml Vial) 0 unit SUBCUT QIDACHS [facility]; Protocol Last Admin: 02/10/22 12:35 Dose: 8 unit Documented By: EMEKA Comments: 341 Lorazepam (Lorazepam 1 Mg Tablet) 1 mg PO DAILY PRN PRN Reason: anxiety Last Admin: 02/10/22 12:34 Dose: 1 mg Documented By: EMEKA Melatonin (Melatonin 3 Mg Tablet) 6 mg PO BEDTIME PRN PRN Reason: Insomnia Methylprednisolone Sodium Succinate (Methylprednisolone Sod Succ 40 Mg/Ml Vial) 40 mg IVPUSH Q12H [facility] Last Admin: 02/10/22 09:38 Dose: 40 mg Documented By: LILIA Morphine Sulfate (Morphine Sulfate 4 Mg/Ml Cartridge) 1 mg IVPUSH Q4H PRN; Protocol PRN Reason: Pain, SOB Last Admin: 02/09/22 23:51 Dose: 1 mg Documented By: JOSE Pharmacy Consult (Consult Rx Perform Med Rec) 1 each MISCELLANE ONCE PRN PRN Reason: Consult order Senna (Sennosides 8.6 Mg Tablet) 17.2 mg PO BEDTIME PRN PRN Reason: Constipation Sodium Chloride (0.9 % Sodium Chloride Flush 3 Ml Syringe) 3 ml IVFLUSH QSHIFT [facility] Last Admin: 02/10/22 09:38 Dose: 3 ml Documented By: LILIA Venlafaxine HCl (Venlafaxine Hcl Er 150 Mg Cap.Er.24h) 150 mg PO DAILY [facility] Last Admin: 02/10/22 11:29 Dose: 150 mg Documented By: LILIA Labs CBC & Chem 7: 02/10/22 04:30 02/10/22 04:30 Labs: Laboratory Results - last 24 hr 02/09/22 02/09/22 02/09/22 17:14 17:14 17:14 MCV 81.4 MCH 26.4 L MCHC 32.5 RDW 15.2 Plt Count 370 MPV 9.3 L Immature Gran % (Auto) Neut % (Auto) Lymph % (Auto) [place] % (Auto) Eos % (Auto) Baso % (Auto) Lymph # (Auto) [place] # (Auto) Eos # (Auto) Baso # (Auto) Abs Immat Gran (auto) Absolute Neuts (auto) Absolute Nucleated RBC 0.000 Nucleated RBC % (auto) 0.0 Smear Tech's Comments D-Dimer High Sensitivty Anion Gap 15 Estim Creat Clear Calc 85.1 Estimated GFR > 60 POC Glucose Random Glucose 174 H Estimat Average Glucose Hemoglobin A1c % Calcium 9.0 Total Bilirubin Direct Bilirubin AST ALT Alkaline Phosphatase Troponin I High Sens 3.5 B-Natriuretic Peptide 13 Total Protein Albumin Triglycerides Cholesterol LDL Cholesterol, Calc HDL Cholesterol COVID-19 (BREANNE) COVID-[employer] 02/09/22 02/09/22 02/10/22 17:14 19:28 04:30 MCV 81.9 MCH 26.4 L MCHC 32.3 RDW 15.2 Plt Count 359 MPV 9.6 Immature Gran % (Auto) 0.2 Neut % (Auto) 91.3 H Lymph % (Auto) 7.3 L [place] % (Auto) 1.1 L Eos % (Auto) 0.0 Baso % (Auto) 0.1 Lymph # (Auto) 0.6 L [place] # (Auto) 0.1 Eos # (Auto) 0.0 Baso # (Auto) 0.0 Abs Immat Gran (auto) 0.02 Absolute Neuts (auto) 7.5 Absolute Nucleated RBC 0.000 Nucleated RBC % (auto) 0.0 Smear Tech's Comments VERIFIED D-Dimer High Sensitivty 222 Anion Gap Estim Creat Clear Calc Estimated GFR POC Glucose Random Glucose Estimat Average Glucose Hemoglobin A1c % Calcium Total Bilirubin Direct Bilirubin AST ALT Alkaline Phosphatase Troponin I High Sens B-Natriuretic Peptide Total Protein Albumin Triglycerides Cholesterol LDL Cholesterol, Calc HDL Cholesterol COVID-19 (BREANNE) Negative COVID-19 [employer] Com See Note 06/22/22 06/22/22 06/22/22 04:30 04:30 07:21 MCV MCH MCHC RDW Plt Count MPV Immature Gran % (Auto) Neut % (Auto) Lymph % (Auto) [place] % (Auto) Eos % (Auto) Baso % (Auto) Lymph # (Auto) [place] # (Auto) Eos # (Auto) Baso # (Auto) Abs Immat Gran (auto) Absolute Neuts (auto) Absolute Nucleated RBC Nucleated RBC % (auto) Smear Tech's Comments D-Dimer High Sensitivty Anion Gap 20 Estim Creat Clear Calc 73.3 Estimated GFR 55 POC Glucose 353 H* Random Glucose 424 H* Estimat Average Glucose 163 Hemoglobin A1c % 7.3 Calcium 8.8 Total Bilirubin 0.2 Direct Bilirubin < 0.2 AST 24 ALT 30 Alkaline Phosphatase 68 Troponin I High Sens B-Natriuretic Peptide Total Protein 7.3 Albumin 4.2 Triglycerides 165 Cholesterol 171 LDL Cholesterol, Calc 110 HDL Cholesterol 28 COVID-19 (BREANNE) COVID-19 Clin Com 02/10/22 12:34 MCV MCH MCHC RDW Plt Count MPV Immature Gran % (Auto) Neut % (Auto) Lymph % (Auto) [place] % (Auto) Eos % (Auto) Baso % (Auto) Lymph # (Auto) [place] # (Auto) Eos # (Auto) Baso # (Auto) Abs Immat Gran (auto) Absolute Neuts (auto) Absolute Nucleated RBC Nucleated RBC % (auto) Smear Tech's Comments D-Dimer High Sensitivty Anion Gap Estim Creat Clear Calc Estimated GFR POC Glucose 345 H Random Glucose Estimat Average Glucose Hemoglobin A1c % Calcium Total Bilirubin Direct Bilirubin AST ALT Alkaline Phosphatase Troponin I High Sens B-Natriuretic Peptide Total Protein Albumin Triglycerides Cholesterol LDL Cholesterol, Calc HDL Cholesterol COVID-19 (BREANNE) COVID-19 Clin Com Assessment and Plan (1) Diabetes mellitus: Status: Acute Plan 41F presented with sob Acute hypoxic respiratory failure secondary to moderate persistent asthma/COPD overlap with acute decompensation IV Solu-Medrol, bronchodilatorys, smoking cessation hyperglycemia likely new onset DM, a1c 7.3, patient educated will use insulin in hospital, likely metformin on discharge obesity weight loss recommended adhd adderal mood disorder effexory dvt prophylaxis - lovenox full code reason for continued hospitalization: significant sob at risk for decompensation Quality Stroke Does the patient have a stroke diagnosis?: No VTE Prior VTE?: No VTE Risk Level:: Medical - moderate - high VTE Device Contraindication: Treatment Not Indicated VTE Drug Contraindication: N/A - Med Ordered
[2022-02-10 18:10] LABS: Glucose, Whole Blood 314 mg/dL (60-115)
[2022-02-10 20:04] LABS: Glucose, Whole Blood 300 mg/dL (60-115)
[2022-02-11] VITALS (8 sets, daily range): BP systolic 150–178; BP diastolic 70–94; PULSE 80–95; RESP 18–20; TEMP 35.9–37.3; O2SAT 93–97
[2022-02-11 06:25] LABS: Hematocrit 35.4 % (37.0-47.0); Hemoglobin 11.2 g/dl (12.0-16.0); Mean Corpuscular HGB Conc 31.6 g/dl (31.0-35.0); Mean Corpuscular Hemoglobin 26.2 pg (27.0-33.0); Mean Corpuscular Volume 82.7 fL (80.0-98.0); Mean Platelet Volume 9.5 fL (9.4-12.3); Platelet Count 351 X10*3/uL (160-400); Red Blood Count 4.28 X10*6/uL (4.20-5.50); Red Cell Distribution Width 15.7 % (11.0-16.0); White Blood Count 15.4 X10*3/uL (4.8-10.8)
[2022-02-11 06:33] LABS: Anion Gap 14 (12-20); Blood Urea Nitrogen 19 mg/dL (9-16); Calcium 9.1 mg/dL (8.4-10.2); Carbon Dioxide 25 mmol/L (22-29); Chloride 104 mmol/L (96-108); Creatinine Clr Calc Pharmacy 96.1; Estimated Glomerular Filt Rate > 60; Glucose Fasting 322 mg/dL (60-99); Sodium 139 mmol/L (135-145)
[2022-02-11] MEDS: Albuterol/Iprat 2.5/0.5MG 3 ML AMPUL.NEB INHALE ×2 (07:43→22:13)
[2022-02-11 07:46] LABS: Glucose, Whole Blood 285 mg/dL (60-115)
[2022-02-11] MEDS: Insulin Lispro 100 UNIT/ML 3 ML VIAL SUBCUT ×4 (08:24→21:11)
[2022-02-11] MEDS: methylPREDNISolone Sod Succ 40 MG/ML VIAL IVPUSH ×2 (08:26→21:11)
[2022-02-11] MEDS: Venlafaxine HCl ER 150 MG CAP.ER.24H PO (08:27)
[2022-02-11] MEDS: Dextroamphetamine/Amphetamine XR 10 MG CAP.ER.24H 30 MG PO (08:28)
[2022-02-11] MEDS: Amphetamine Mixed Salts 10 MG TABLET PO (08:28)
[2022-02-11] MEDS: Morphine Sulfate 4 MG/ML CARTRIDGE 1 MG IVPUSH (10:14)
[2022-02-11] MEDS: 0.9 % Sodium Chloride Flush 3 ML SYRINGE IVFLUSH ×2 (10:16→21:12)
[2022-02-11] MEDS: Benzonatate 100 MG CAPSULE PO (10:16)
[2022-02-11 11:07] LABS: Glucose, Whole Blood 262 mg/dL (60-115)
--- NOTE | 2022-02-11 12:38 | P.PNIM_ITS ---
Subjective Subjective Date of Service: 02/11/22 Interval History: cc: sob interval history:some improvement, but still sob Cardiovascular Cardiovascular: Reports no additional cardiovascular complaints Respiratory Respiratory: Reports no additional respiratory complaints Physical Exam Vital Signs: Vital Signs: Last Vital Signs Temp 98.7 F 02/11/22 12:00 Pulse 87 02/11/22 12:00 Resp 20 02/11/22 12:00 BP 176/83 H 02/11/22 12:00 Pulse Ox 94 02/11/22 12:00 O2 Del Method 02/11/22 12:00 O2 Flow Rate 3 02/10/22 00:03 BMI result Body Mass Index 34.9 General: AO X 3, no acute distress Resp: wheezing bilateral, no accessory muscles used CVS: S1,S2,RRR GI: soft, non tender, non distended Neuro: motor grossly intact, alert Psych: appropriate affect, appropriate insight Objective Data Active Medications Acetaminophen (Acetaminophen 325 Mg Tablet) 650 mg PO Q6H PRN PRN Reason: Pain, Mild (Pain Scale 1-3) Last Admin: 02/10/22 04:53 Dose: 650 mg Documented By: JOSE Albuterol/Ipratropium (Albuterol/Iprat 2.5/0.5mg 3 Ml Ampul.Neb) 3 ml INHALE RQ4H WHILE AWAKE [facility] Last Admin: 02/11/22 11:08 Dose: Not Given Documented By: BONI Non-Admin Reason: pt unavail Albuterol/Ipratropium (Albuterol/Iprat 2.5/0.5mg 3 Ml Ampul.Neb) 3 ml INHALE RQ4H PRN PRN Reason: Shortness of Breath/Wheezing Amphetamine/Dextroamphetamine (Dextroamphetamine/Amphetamine Xr 10 Mg Cap.Er.24h) 30 mg PO DAILY [facility] Last Admin: 02/11/22 08:28 Dose: 30 mg Documented By: JACQUI Amphetamine/Dextroamphetamine (Amphetamine Mixed Salts 10 Mg Tablet) 10 mg PO BID@0900,1200 [facility] Last Admin: 02/11/22 12:02 Dose: Not Given Documented By: JACQUI Non-Admin Reason: Patient Refused Benzonatate (Benzonatate 100 Mg Capsule) 100 mg PO TID PRN PRN Reason: Cough Last Admin: 02/11/22 10:16 Dose: 100 mg Documented By: JACQUI Dextrose (Dextrose 50 % 25 Gm/50 Ml Syringe) 25 gm IVPUSH Q15M PRN; Protocol PRN Reason: per Hypoglycemia Standing Ord. Enoxaparin Sodium (Enoxaparin Sodium 40 Mg/0.4 Ml Syringe) 40 mg SUBCUT Q24H [facility] Last Admin: 02/11/22 01:09 Dose: Not Given Documented By: KELLY Non-Admin Reason: Patient Asleep Glucose (Glucose Gel 15 Gm Gel..Gram.) 15 gm PO Q15M PRN; Protocol PRN Reason: per Hypoglycemia Standing Ord. Insulin Human Lispro (Insulin Lispro 100 Unit/Ml 3 Ml Vial) 0 unit SUBCUT QIDACHS [facility]; Protocol Last Admin: 02/11/22 11:59 Dose: 6 unit Documented By: JACQUI Lorazepam (Lorazepam 1 Mg Tablet) 1 mg PO DAILY PRN PRN Reason: anxiety Last Admin: 02/10/22 12:34 Dose: 1 mg Documented By: EMEKA Melatonin (Melatonin 3 Mg Tablet) 6 mg PO BEDTIME PRN PRN Reason: Insomnia Methylprednisolone Sodium Succinate (Methylprednisolone Sod Succ 40 Mg/Ml Vial) 40 mg IVPUSH Q12H [facility] Last Admin: 02/11/22 08:26 Dose: 40 mg Documented By: JACQUI Morphine Sulfate (Morphine Sulfate 4 Mg/Ml Cartridge) 1 mg IVPUSH Q4H PRN; Protocol PRN Reason: Pain, SOB Last Admin: 02/11/22 10:14 Dose: 1 mg Documented By: JACQUI Pharmacy Consult (Consult Rx Perform Med Rec) 1 each MISCELLANE ONCE PRN PRN Reason: Consult order Senna (Sennosides 8.6 Mg Tablet) 17.2 mg PO BEDTIME PRN PRN Reason: Constipation Sodium Chloride (0.9 % Sodium Chloride Flush 3 Ml Syringe) 3 ml IVFLUSH QSHIFT [facility] Last Admin: 02/11/22 10:16 Dose: 3 ml Documented By: JACQUI Venlafaxine HCl (Venlafaxine Hcl Er 150 Mg Cap.Er.24h) 150 mg PO DAILY [facility] Last Admin: 02/11/22 08:27 Dose: 150 mg Documented By: JACQUI Labs CBC & Chem 7: 02/11/22 05:54 02/11/22 05:54 Labs: Laboratory Results - last 24 hr 02/10/22 02/10/22 02/10/22 12:34 18:07 19:58 MCV MCH MCHC RDW Plt Count MPV Absolute Nucleated RBC Nucleated RBC % (auto) Anion Gap Estim Creat Clear Calc Estimated GFR POC Glucose 345 H 314 H 300 H Fasting Glucose Calcium 02/11/22 02/11/22 02/11/22 05:54 05:54 07:35 MCV 82.7 MCH 26.2 L MCHC 31.6 RDW 15.7 Plt Count 351 MPV 9.5 Absolute Nucleated RBC 0.000 Nucleated RBC % (auto) 0.0 Anion Gap 14 Estim Creat Clear Calc 96.1 Estimated GFR > 60 POC Glucose 285 H Fasting Glucose 322 H Calcium 9.1 02/11/22 10:58 MCV MCH MCHC RDW Plt Count MPV Absolute Nucleated RBC Nucleated RBC % (auto) Anion Gap Estim Creat Clear Calc Estimated GFR POC Glucose 262 H Fasting Glucose Calcium Assessment and Plan (1) Diabetes mellitus: Status: Acute Plan 41F presented with sob Acute hypoxic respiratory failure secondary to moderate persistent asthma/COPD overlap with acute decompensation improved but still with wheezes and sob cotninue IV Solu-Medrol, bronchodilators, smoking cessation hyperglycemia likely new onset DM, a1c 7.3, patient educated continue insulin in hospital, likely metformin on discharge obesity weight loss recommended adhd adderal mood disorder effexory dvt prophylaxis - lovenox full code reason for continued hospitalization: significant sob at risk for decompensation Quality Stroke Does the patient have a stroke diagnosis?: No VTE Prior VTE?: No VTE Risk Level:: Medical - moderate - high VTE Device Contraindication: Treatment Not Indicated VTE Drug Contraindication: N/A - Med Ordered
--- NOTE | 2022-02-11 14:37 | MHC.CM.PN ---
PER MD ROUNDS, PT NOT YET CLEARED TO DC BUT IS EXPECTED TO BE TOMORROW. DC PLAN REMAINS HOME WITH NO SERVICES VIA PRIVATE TRANSPORT
[2022-02-11 16:10] LABS: Glucose, Whole Blood 270 mg/dL (60-115)
[2022-02-11 19:53] LABS: Glucose, Whole Blood 235 mg/dL (60-115)
[2022-02-11] MEDS: LORazepam 1 MG TABLET PO (21:11)
[2022-02-12] VITALS (9 sets, daily range): BP systolic 145–165; BP diastolic 82–92; PULSE 78–109; RESP 18–20; TEMP 35.3–37.1; O2SAT 94–97
[2022-02-12 06:53] LABS: Hematocrit 35.2 % (37.0-47.0); Hemoglobin 11.2 g/dl (12.0-16.0); Mean Corpuscular HGB Conc 31.8 g/dl (31.0-35.0); Mean Corpuscular Hemoglobin 26.9 pg (27.0-33.0); Mean Corpuscular Volume 84.4 fL (80.0-98.0); Platelet Count 337 X10*3/uL (160-400); Red Blood Count 4.17 X10*6/uL (4.20-5.50); Red Cell Distribution Width 15.5 % (11.0-16.0); White Blood Count 15.3 X10*3/uL (4.8-10.8)
[2022-02-12 07:23] LABS: Anion Gap 14 (12-20); Blood Urea Nitrogen 23 mg/dL (9-16); Calcium 8.5 mg/dL (8.4-10.2); Carbon Dioxide 25 mmol/L (22-29); Chloride 102 mmol/L (96-108); Creatinine Clr Calc Pharmacy 99.8; Estimated Glomerular Filt Rate > 60; Glucose Fasting 328 mg/dL (60-99); Potassium 4.7 mmol/L (3.3-5.1); Sodium 136 mmol/L (135-145)
[2022-02-12] MEDS: Albuterol/Iprat 2.5/0.5MG 3 ML AMPUL.NEB INHALE ×3 (07:36→18:52)
[2022-02-12 07:48] LABS: Glucose, Whole Blood 290 mg/dL (60-115)
[2022-02-12] MEDS: Dextroamphetamine/Amphetamine XR 10 MG CAP.ER.24H 30 MG PO (08:52)
[2022-02-12] MEDS: Venlafaxine HCl ER 150 MG CAP.ER.24H PO (08:52)
[2022-02-12] MEDS: methylPREDNISolone Sod Succ 40 MG/ML VIAL IVPUSH ×2 (08:52→20:11)
[2022-02-12] MEDS: Insulin Lispro 100 UNIT/ML 3 ML VIAL SUBCUT ×4 (08:52→20:11)
[2022-02-12] MEDS: Amphetamine Mixed Salts 10 MG TABLET PO ×2 (08:52→11:54)
[2022-02-12] MEDS: 0.9 % Sodium Chloride Flush 3 ML SYRINGE IVFLUSH ×3 (08:53→20:11)
--- NOTE | 2022-02-12 10:26 | HO.PM.IMPN ---
Subjective Subjective Date of Service: 02/12/22 Interval History: cc: sob interval history:some improvement, but still sob Cardiovascular Cardiovascular: Reports no additional cardiovascular complaints Respiratory Respiratory: Reports no additional respiratory complaints Physical Exam Vital Signs: Vital Signs: Last Vital Signs Temp 97.1 F 02/12/22 08:00 Pulse 79 02/12/22 08:00 Resp 20 02/12/22 08:00 BP 145/92 H 02/12/22 08:00 Pulse Ox 94 02/12/22 08:00 O2 Del Method 02/12/22 08:00 O2 Flow Rate 3 02/10/22 00:03 BMI result Body Mass Index 34.9 General: AO X 3, no acute distress Resp: wheezing bilateral, no accessory muscles used CVS: S1,S2,RRR GI: soft, non tender, non distended Neuro: motor grossly intact, alert Psych: appropriate affect, appropriate insight Objective Data Active Medications Acetaminophen (Acetaminophen 325 Mg Tablet) 650 mg PO Q6H PRN PRN Reason: Pain, Mild (Pain Scale 1-3) Last Admin: 02/10/22 04:53 Dose: 650 mg Documented By: N-ANICL Albuterol/Ipratropium (Albuterol/Iprat 2.5/0.5mg 3 Ml Ampul.Neb) 3 ml INHALE RQ4H WHILE AWAKE [facility] Last Admin: 02/12/22 07:36 Dose: 3 ml Documented By: BLANICA Albuterol/Ipratropium (Albuterol/Iprat 2.5/0.5mg 3 Ml Ampul.Neb) 3 ml INHALE RQ4H PRN PRN Reason: Shortness of Breath/Wheezing Last Admin: 02/11/22 22:13 Dose: 3 ml Documented By: ARGENIS Amphetamine/Dextroamphetamine (Dextroamphetamine/Amphetamine Xr 10 Mg Cap.Er.24h) 30 mg PO DAILY [facility] Last Admin: 02/12/22 08:52 Dose: 30 mg Documented By: JAVIER Amphetamine/Dextroamphetamine (Amphetamine Mixed Salts 10 Mg Tablet) 10 mg PO BID@0900,1200 [facility] Last Admin: 02/12/22 08:52 Dose: 10 mg Documented By: JAVIER Benzonatate (Benzonatate 100 Mg Capsule) 100 mg PO TID PRN PRN Reason: Cough Last Admin: 02/11/22 10:16 Dose: 100 mg Documented By: JACQUI Dextrose (Dextrose 50 % 25 Gm/50 Ml Syringe) 25 gm IVPUSH Q15M PRN; Protocol PRN Reason: per Hypoglycemia Standing Ord. Enoxaparin Sodium (Enoxaparin Sodium 40 Mg/0.4 Ml Syringe) 40 mg SUBCUT Q24H [facility] Last Admin: 02/12/22 00:40 Dose: Not Given Documented By: KELLY Non-Admin Reason: Patient Refused Glucose (Glucose Gel 15 Gm Gel..Gram.) 15 gm PO Q15M PRN; Protocol PRN Reason: per Hypoglycemia Standing Ord. Guaifenesin (Guaifenesin La 600 Mg Tab.Er.12h) 1,200 mg PO BID [facility] Guaifenesin/Dextromethorphan (Guaifenesin Dm 100/10/5 Ml 5 Ml Syrup) 5 ml PO Q4H PRN PRN Reason: cough Insulin Human Lispro (Insulin Lispro 100 Unit/Ml 3 Ml Vial) 0 unit SUBCUT QIDACHS [facility]; Protocol Last Admin: 02/12/22 08:52 Dose: 6 unit Documented By: JAVIER Lorazepam (Lorazepam 1 Mg Tablet) 1 mg PO DAILY PRN PRN Reason: anxiety Last Admin: 02/11/22 21:11 Dose: 1 mg Documented By: KELLY Melatonin (Melatonin 3 Mg Tablet) 6 mg PO BEDTIME PRN PRN Reason: Insomnia Methylprednisolone Sodium Succinate (Methylprednisolone Sod Succ 40 Mg/Ml Vial) 40 mg IVPUSH Q12H [facility] Last Admin: 02/12/22 08:52 Dose: 40 mg Documented By: JAVIER Morphine Sulfate (Morphine Sulfate 4 Mg/Ml Cartridge) 1 mg IVPUSH Q4H PRN; Protocol PRN Reason: Pain, SOB Last Admin: 02/11/22 10:14 Dose: 1 mg Documented By: JACQUI Pharmacy Consult (Consult Rx Perform Med Rec) 1 each MISCELLANE ONCE PRN PRN Reason: Consult order Senna (Sennosides 8.6 Mg Tablet) 17.2 mg PO BEDTIME PRN PRN Reason: Constipation Sodium Chloride (0.9 % Sodium Chloride Flush 3 Ml Syringe) 3 ml IVFLUSH QSHIFT [facility] Last Admin: 02/12/22 08:53 Dose: 3 ml Documented By: JAVIER Venlafaxine HCl (Venlafaxine Hcl Er 150 Mg Cap.Er.24h) 150 mg PO DAILY [facility] Last Admin: 02/12/22 08:52 Dose: 150 mg Documented By: JAVIER Labs CBC & Chem 7: 02/12/22 06:28 02/12/22 06:28 Labs: Laboratory Results - last 24 hr 02/11/22 02/11/22 02/11/22 10:58 16:03 19:47 MCV MCH MCHC RDW Plt Count MPV Absolute Nucleated RBC Nucleated RBC % (auto) Anion Gap Estim Creat Clear Calc Estimated GFR POC Glucose 262 H 270 H 235 H Fasting Glucose Calcium 02/12/22 02/12/22 02/12/22 06:28 06:28 07:44 MCV 84.4 MCH 26.9 L MCHC 31.8 RDW 15.5 Plt Count 337 MPV 10.0 Absolute Nucleated RBC 0.000 Nucleated RBC % (auto) 0.0 Anion Gap 14 Estim Creat Clear Calc 99.8 Estimated GFR > 60 POC Glucose 290 H Fasting Glucose 328 H Calcium 8.5 D Assessment and Plan (1) Diabetes mellitus: Status: Acute Plan 41F presented with sob Acute hypoxic respiratory failure secondary to moderate persistent asthma/COPD overlap with acute decompensation improved but still with wheezes and sob continue IV Solu-Medrol, bronchodilators, smoking cessation added mucinex and robitussin hyperglycemia likely new onset DM, a1c 7.3, patient educated continue insulin in hospital, likely metformin on discharge obesity weight loss recommended adhd adderal mood disorder effexory dvt prophylaxis - lovenox full code reason for continued hospitalization: significant sob at risk for decompensation Quality Stroke Does the patient have a stroke diagnosis?: No VTE Prior VTE?: No VTE Risk Level:: Medical - moderate - high VTE Device Contraindication: Treatment Not Indicated VTE Drug Contraindication: N/A - Med Ordered
[2022-02-12 11:21] LABS: Glucose, Whole Blood 223 mg/dL (60-115)
[2022-02-12] MEDS: guaiFENesin LA 600 MG TAB.ER.12H 1200 MG PO ×2 (11:52→20:11)
[2022-02-12] MEDS: Acetaminophen 325 MG TABLET 650 MG PO (11:53)
[2022-02-12 15:57] LABS: Glucose, Whole Blood 330 mg/dL (60-115)
[2022-02-12 20:01] LABS: Glucose, Whole Blood 262 mg/dL (60-115)
[2022-02-13] MEDS: LORazepam 1 MG TABLET PO (00:56)
[2022-02-13] MEDS: Acetaminophen 325 MG TABLET 650 MG PO (00:56)
[2022-02-13] MEDS: Enoxaparin Sodium 40 MG/0.4 ML SYRINGE SUBCUT (00:56)
[2022-02-13 03:06] VITALS: BP 153/88; PULSE 65; RESP 18; TEMP 36.7; O2SAT 98
[2022-02-13 07:25] VITALS: BP 187/83; PULSE 68; RESP 18; TEMP 36.6; O2SAT 93
[2022-02-13] MEDS: Albuterol/Iprat 2.5/0.5MG 3 ML AMPUL.NEB INHALE ×2 (07:32→11:41)
[2022-02-13 07:33] VITALS: PULSE 102; RESP 18; O2SAT 96
[2022-02-13 07:57] LABS: Glucose, Whole Blood 228 mg/dL (60-115)
[2022-02-13] MEDS: 0.9 % Sodium Chloride Flush 3 ML SYRINGE IVFLUSH (08:29)
[2022-02-13] MEDS: guaiFENesin LA 600 MG TAB.ER.12H 1200 MG PO (08:29)
[2022-02-13] MEDS: methylPREDNISolone Sod Succ 40 MG/ML VIAL IVPUSH (08:29)
[2022-02-13] MEDS: Insulin Lispro 100 UNIT/ML 3 ML VIAL SUBCUT ×2 (08:29→12:29)
[2022-02-13] MEDS: Venlafaxine HCl ER 150 MG CAP.ER.24H PO (08:29)
[2022-02-13] MEDS: Dextroamphetamine/Amphetamine XR 10 MG CAP.ER.24H 30 MG PO (08:30)
[2022-02-13] MEDS: Amphetamine Mixed Salts 10 MG TABLET PO ×2 (08:30→12:30)
--- NOTE | 2022-02-13 11:05 | PM.DS ---
DS: Providers Provider Date of Service: 02/13/22 Date of admission: 02/09/22 23:16 Primary care physician: Cullen Mcallister MD DS: Diagnosis Discharge Diagnosis (1) Diabetes mellitus: Status: Acute DS: Summary Hospital Course Hospital Course: from initial hpi: 41-year-old female with a past medical history of asthma, TA presented to the hospital today with a chief complaint of shortness of breath.? Patient reports that over the past couple days she has been having shortness of breath associated with the cough; denies any fevers.? Symptoms have been gradually worsening hence decided to come to the ER for further evaluation.? Patient reports that she tries or home inhalers with no significant improvement.? Denies any fever chills cough.? Denies any triggering factors Denies any recent travel or sick contacts.? Denies any chest pain or palpitations.? Review of all other systems is negative except mentioned above ER course: Per ER team patient noted to be audibly wheezing on presentation; patient was given nebulizer treatments and steroids; later on ambulation patient noted to be desaturating to 88-89% on room air; subsequently placed on supplemental oxygen; and still noted to be wheezing.? Hence decided to admit to the hospital for further management hospital course: Patient was admitted for acute hypoxic respiratory failure secondary to moderate persistent asthma / COPD overlap with acute decompensation. She was given IV steroids and nebulizer treatments, smoking cessation was recommended. Her symptoms significantly improved and she was able to be weaned off oxygen. She will be discharged on 5 more days of p.o. prednisone. Course was complicated by hyperglycemia. Her hemoglobin A1c was 7.3 indicating new onset diabetes type 2. During hospitalization she was managed with insulin, on discharge she will be started on metformin. for her obesity weight loss recommended. For her ADHD Adderall will be continued. For mood disorder she will continue on Effexor. Time Spent with Patient Time attestation: Total time spent providing and/or coordinating discharge services: Discharge coordination time: Greater than 30 minutes Quality: Safe Use of Opioids Does Pt have an Active Cancer Diagnosis on the Problem List?: No Quality: Stroke Does the patient have a stroke diagnosis?: No Physical Exam Vital Signs: Vital Signs: Last Vital Signs Temp 97.8 F 02/13/22 07:25 Pulse 102 H 02/13/22 07:33 Resp 18 02/13/22 07:33 BP 187/83 H 02/13/22 07:25 Pulse Ox 93 02/13/22 07:25 O2 Del Method 02/13/22 03:06 O2 Flow Rate 3 02/10/22 00:03 BMI result Body Mass Index 34.9 General: AO X 3, no acute distress Resp: CTA bilateral, no accessory muscles used CVS: S1,S2,RRR GI: soft, non tender, non distended Neuro: motor grossly intact, alert Psych: appropriate affect, appropriate insight DS: Data Data Completed and Pending Labs on day of discharge: Laboratory Results - last 24 hr 02/12/22 02/12/22 02/12/22 11:05 15:35 19:28 POC Glucose 223 H 330 H 262 H 02/13/22 07:27 POC Glucose 228 H Discharge Plan Discharge Patient Disposition: Home, Self-Care Discharge Diagnosis: asthma, DM - new Referrals: Po,Cullen Russell MD [Primary Care Provider] - Discharge Medications: New albuterol sulfate [Ventolin HFA] 90 mcg/actuation HFA aerosol inhaler 2 puff inhalation Q4-6H PRN (Reason: shortness of breath or wheezing) Qty: 8.5 0RF prednisone 20 mg tablet 40 mg PO DAILY Qty: 10 0RF (DME) nebulizer accessories Kit See Rx Instructions .Route Qty: 1 0RF Rx Instructions: As directed albuterol sulfate 2.5 mg /3 mL (0.083 %) solution for nebulization 2.5 mg inhalation Q4-6H PRN (Reason: sob) Qty: 90 0RF metformin 500 mg tablet 500 mg PO BIDWMEAL Qty: 60 0RF (DME) blood-glucose meter [FreeStyle Flash System] Kit See Rx Instructions .Route Qty: 1 0RF Rx Instructions: As directed (DME) lancets [FreeStyle Lancets] 28 gauge misc See Rx Instructions .Route Qty: 100 0RF Rx Instructions: As directed (DME) FreeStyle Test Strip See Rx Instructions .Route Qty: 100 0RF Rx Instructions: As directed alcohol swabs [Alcohol Wipes] Pads, Medicated 1 pad topical DAILY Qty: 200 0RF Continued dextroamphetamine-amphetamine [Adderall] 10 mg tablet 10 mg PO BID PRN (Reason: ADHD) Qty: 60 0RF Rx Instructions: administer doses at least 4-6 hours apart venlafaxine 150 mg capsule,extended release 24hr 150 mg PO DAILY dextroamphetamine-amphetamine [Adderall XR] 30 mg capsule,extended release 24hr 30 mg PO QAM Qty: 30 0RF lorazepam [Ativan] 1 mg tablet 1 mg PO DAILY PRN (Reason: anxiety) Qty: 30 0RF Rx Instructions: 1-2 a month terbinafine HCl 250 mg tablet 250 mg PO DAILY Qty: 45 0RF Label Comments: PATIENT HASNT EVEN PICKED UP FROM THE PHARMACY YET BUT INDENDS ON TAKING IT Discharge Orders: Discharge Order (Routine); Ordered 02/13/22 Ordered By: Giovani Figueredo Diet: diabetic diet Activity on Discharge: As tolerated Stand Alone Forms: Patient Portal Discharge page Care Plan Goals: recovery Health Concerns: new DM, asthma Plan of Treatment: prednisone 5 days, start metformin, check sugars daily for now, follow up with pcp Assessment: see above Patient Instructions: Asthma (ED), How to Stop Smoking (ED)
--- NOTE | 2022-02-13 11:22 | MHC.CM.PN ---
PT WILL DC HOME TODAY WITH NO SERVICES
[2022-02-13 11:26] LABS: Glucose, Whole Blood 213 mg/dL (60-115)
[2022-02-13 11:42] VITALS: PULSE 104; RESP 18; O2SAT 96
== END 2022-02-13 14:00 | disposition home or self-care (01) | DRG 141 ==
LOC: HO.ED 23:18 → HO.EDOVER 23:21 → HO.IMC 02-10 16:31
PROVIDERS: Student in an Organized Health Care Education/Training Program; Admitting Provider Hospitalist; Emergency Provider Internal Medicine; PCP Internal Medicine; Visit Provider Internal Medicine
DX: J45.41 Moderate persistent asthma with (acute) exacerbation (principal); J96.01 Acute respiratory failure with hypoxia; J44.1 Chronic obstructive pulmonary disease with (acute) exacerbation; E11.65 Type 2 diabetes mellitus with hyperglycemia; F90.9 Attention-deficit hyperactivity disorder, unspecified type; F32.A Depression, unspecified; F41.9 Anxiety disorder, unspecified; E66.9 Obesity, unspecified; Z68.34 Body mass index [BMI] 34.0-34.9, adult; Z20.822 Contact with and (suspected) exposure to COVID-19; Z98.84 Bariatric surgery status; Z86.73 Personal history of transient ischemic attack (TIA), and cerebral infarction without residual deficits; Z87.891 Personal history of nicotine dependence; Z79.84 Long term (current) use of oral hypoglycemic drugs; Z79.52 Long term (current) use of systemic steroids; Z79.899 Other long term (current) drug therapy
CPT/HCPCS: 36415; 71045; 80048; 80061; 80076; 82947; 83036; 83880; 84484; 85025; 85027; 85379; 87635; 93005; 94640; 94644; 94645; 96365; 96366; 96375; 99219; 99285; J1650; J2270; J2920; J2930; J3475

== ENCOUNTER → 2023-05-25 15:00 | Outpatient (BNVA) | payer OTHER, SELFPAY | PROVIDERS: PCP Internal Medicine; Visit Provider Physician Assistant Surgical ==

== ENCOUNTER → 2023-05-25 15:00 | Outpatient (BNVA) | payer OTHER, SELFPAY | PROVIDERS: PCP Internal Medicine; Visit Provider Physician Assistant Surgical ==

== ENCOUNTER 2023-06-22 13:49 | Outpatient (AMB) | payer OTHER, SELFPAY ==
--- NOTE | 2023-06-22 13:55 | A.OFFVIS_ITS ---
Intake VS Expanded 06/22/23 14:16 BP 150/67 H Blood Pressure Location Rt brachial Blood Pressure Position Sitting Pulse 86 Pulse Source Pulse Oximeter Temp 96.9 F Temperature Source Tympanic Pulse Oximetry 93 Oxygen Delivery Method Room Air Height 5 ft 3.5 in Weight 264 lb 6.4 oz BMI 46.1 Body Fat % 46.6 Body Fat Mass 123.2 Fat Free Mass 141.0 Visceral Fat Rating 15.0 Body Water % 38.1 Body Water Mass 100.8 Muscle Mass/Score 134.0 Basal Metabolic Rate/Score 2,000 Intake Visit Reasons: (OV) [employer] Revision BMI 45.6 SWL Allergies No Known Allergies Allergy (Verified 05/25/23 15:39) HPI HPI Comments History of Present Illness Details This is a 43 year old woman who is interested of conversion of previous gastric band surgery to LSG. Gastric band was placed in 2008 at [facility]. Pre op weight was 230 lbs and lowest weight was 170lbs. In 2013 she underwent exploratory laparoscopy and fluid in band was removed. She was prescribed Ozempic by her PCP and lost about 14 lbs over 3 months. Her goal is to be healthy. She reports first being concerned about her weight 15 years ago. She lives with her adopted son and daughter. She is school FT now. She wakes at: 5:45 am, bed at 10 pm Breakfast: may have ramana rafy or cranberry or OJ. Skips daily Lunch: 1pm - sandwich or leftovers, takes 1 hour to eat sandwich. ramana rafy again Dinner: 6-7 pm - only eats at mothers house. At home - does not make a plate of food for herself. Will pick off childrens plate. Last night had chicken breast , rice and corn- does not feel hungry. Gingerale or whole milk After dinner: chips or popcorn, sweets Other snacks: does not snack during the day Liquids: 34 oz of soda per day and 8 oz juice per day - no caffeine Alcohol intake: 1-2 beers a few tiems per month, tobacco: none, marijuana:none Exercise:has access to gym at college. No equipment at home Last mammogram: is overdue Last pap smear: is overdue Contraceptive method: no sexual partners ISHA:1 ESS:9 GERD0: QOL:105 PFSH Medical History (Updated 06/22/23 @ 14:01 by Danae Bonner PA-C) Acute asthma exacerbation Asthmaticus, status UTI (urinary tract infection) URI (upper respiratory infection) TIA (transient ischemic attack) Tobacco abuse Obesity ADHD Surgical History (Updated 06/22/23 @ 14:04 by Danae Bonner PA-C) History of tooth extraction History of prior ablation treatment LAP-BAND surgery status Family History (Updated 01/24/23 @ 16:47 by Cullen Mcallister MD) Father Myocardial infarction History of quadruple bypass CKD (chronic kidney disease) Mother Healthy adult Paternal Grandmother Liver cancer Maternal Aunt Melanoma Maternal Grandmother Stroke Liver cancer Paternal Grandfather Myocardial infarction Paternal Uncle Myocardial infarction Social History (Updated 01/24/23 @ 16:48 by Cullen Mcallister MD) Household Members: Children Housing: House Do you presently have visiting nurse or other home services: No Alcohol intake: current Alcohol intake frequency: holidays/special occasions only Patient Tobacco Use Status: Former Tobacco user Tobacco use type: Cigarette Cigarettes Per Day: 5 e-Cigarette/Vaping Use: Never Used Second Hand Smoke Exposure: Yes Advance Directives Date on File: 02/10/22 service: No Current occupational status: employed Cognitive needs: No Hearing needs: No Vision needs: No Physical Exam Const General: cooperative, no acute distress and well developed Nutritional Appearance: obese Orientation/consciousness: patient oriented x3 HEENT Head: Yes normal to inspection Neck Neck: Yes normal visual inspection Thyroid: Thyroid normal Resp Effort & Inspection: normal respiratory effort Auscultation: clear to auscultation bilaterally Cardio Rate: regular rate Rhythm: regular rhythm Heart sounds: S1 normal heart sound present, S2 normal heart sound present and no murmurs GI Other: gastric port flet to right of midline in abdomen Inspection: No distended, Yes obesity and Yes scar (well healed laparoscopic incisions) Palpation (GI): Soft to palpation, nontender and no guarding Skin General skin exam: no rashes or lesions noted and other (warm and dry) Wounds: no wounds Hair: normal Neuro General: patient oriented x3 Extrem General: Yes no pedal edema and Yes no calf tenderness Psych Attitude: cooperative Thought process: Normal thought process present Thought content: Normal thought content present Insight: Good insight present (Psych) Judgement: Good judgement present (Psych) Assessment & Plan Assessment & Plan (1) Morbid obesity: Code(s): E66.01 - Morbid (severe) obesity due to excess calories Plan: This is a 43 yo woman with morbid obesity, DM, HTN and HLD who had gastric band placed in 2008 and wants iit removed and converted to LSG. will start SWL program to prepare for revision of previous bariatric surgery. Blood work, h pylori , CXR, ECG, Abd ULS and UGI have been ordered. She is being scheduled for RD and BH initial consultations. She will start SWL classes and watch at 3 classes before her next appt with Babita. Needs mammogram and papsmear. H pylori at next appt. Will otain OR records from [facility] 1. Adequate sleep of 7-8 hours per night discussed 2. Healthy meal plan - stop skipping meals and stop all sweetened drinks All meals/MR's need to take 20 - 30minutes to complete 10 am - protein shake with water or UAM 2 pm - protein shake with water or UAM 6 pm- dinner of 8 forks lean protein, 8 forks vegetable, 1/2 serving fruit 8-9 p- bar in10 pieces Exercise - elliptical for 300 calories 4d/wee. Walk outside 2 mile sin 40 minutes for 300 calories - goal is 2,00 leisa /week. The importance of avoiding and breast feeding for at least 18 months after bariatric surgery was discussed in the information session and was reinforced today. Pt will purchase body composition analyzer (recommended list given to patient) and weight herself weekly. Next appt with me in 3 weeks. Text me with any questions and weekly weights. Patient is morbidly obese and is not considered stable at this time.?I spent a total of 60 minutes reviewing/updating records, examining the patient and counseling the patient on weight management as detailed above. (2) Hypertension: Code(s): I10 - Essential (primary) hypertension (3) Hypercholesterolemia: Code(s): E78.00 - Pure hypercholesterolemia, unspecified (4) Type 2 diabetes mellitus with hyperglycemia: Comment: January 2022, [facility] eye Code(s): E11.65 - Type 2 diabetes mellitus with hyperglycemia (5) Pre-op evaluation: Code(s): Z01.818 - Encounter for other preprocedural examination (6) LAP-BAND surgery status: Comment: lap band OR 2009 with exploration in 2015 to assess for issues followed by band release Code(s): Z98.84 - Bariatric surgery status (7) Generalized anxiety disorder: Code(s): F41.1 - Generalized anxiety disorder (8) Asthma: Code(s): J45.909 - Unspecified asthma, uncomplicated Coding Level of Care Code New Pt Level 5 (37465) Diagnoses Morbid obesity E66.01 Hypertension I10 Hypercholesterolemia E78.00 Type 2 diabetes mellitus with hyperglycemia E11.65 Pre-op evaluation Z01.818 LAP-BAND surgery status Z98.84 Generalized anxiety disorder F41.1 Asthma J45.909
[2023-06-22 14:16] VITALS: BP 150/67; PULSE 86; TEMP 36.1; O2SAT 93; BMI 46.1
== END 2023-06-22 15:14 | disposition home or self-care (01) ==
PROVIDERS: PCP Internal Medicine; Visit Provider Physician Assistant
DX: E66.01 Morbid (severe) obesity due to excess calories (principal); Z68.42 Body mass index [BMI] 45.0-49.9, adult; Z98.84 Bariatric surgery status; E78.00 Pure hypercholesterolemia, unspecified; E11.65 Type 2 diabetes mellitus with hyperglycemia; F41.1 Generalized anxiety disorder; J45.909 Unspecified asthma, uncomplicated
CPT/HCPCS: 99205

== ENCOUNTER → 2023-06-22 13:49 | Outpatient (BNVA) | payer OTHER, SELFPAY | PROVIDERS: PCP Internal Medicine; Visit Provider Physician Assistant | DX: E66.01 Morbid (severe) obesity due to excess calories (principal); Z68.42 Body mass index [BMI] 45.0-49.9, adult; I10 Essential (primary) hypertension; E78.00 Pure hypercholesterolemia, unspecified; E11.65 Type 2 diabetes mellitus with hyperglycemia; F41.1 Generalized anxiety disorder; J45.909 Unspecified asthma, uncomplicated; Z98.84 Bariatric surgery status | CPT/HCPCS: 99202 ==

== ENCOUNTER 2023-07-04 10:19 | Outpatient (REF) | payer OTHER, SELFPAY ==
--- NOTE | ~2023-07-04 | XR_ITS ---
EXAMINATION: XR CHEST CLINICAL INFORMATION: Bariatric surgery status Preop chest x-ray COMPARISON: None available. TECHNIQUE: 2 views of the chest were obtained. FINDINGS: No significant abnormality is noted involving the heart, lungs, mediastinum or soft tissues. Mild degenerative changes involve the thoracic spine. XR/XR chest 2V IMPRESSION: No acute cardiopulmonary disease.
[2023-07-04 10:41] LABS: MANUAL DIFF FLAG NO
[2023-07-04 10:55] LABS: Basophils Absolute Auto 0.1 X10*3/uL (0.0-0.2); Basophils Percent Auto 0.5 % (0-2); Eosinophils Absolute Auto 0.1 X10*3/uL (0.0-0.4); Eosinophils Percent Auto 1.3 % (0-4); Hematocrit 34.7 % (37.0-47.0); Hemoglobin 10.5 g/dl (12.0-16.0); Imm Gran Abs Auto 0.02 X10*3/uL (0.00-0.03); Imm Gran Pct Auto 0.2 % (0.0-0.4); Lymphocytes Absolute Auto 2.8 X10*3/uL (1.2-4.9); Lymphocytes Percent Auto 27.8 % (20-40); Mean Corpuscular HGB Conc 30.3 g/dl (31.0-35.0); Mean Corpuscular Hemoglobin 23.4 pg (27.0-33.0); Mean Corpuscular Volume 77.5 fL (80.0-98.0); Mean Platelet Volume 9.5 fL (9.4-12.3); Monocytes Absolute Auto 0.6 X10*3/uL (0.1-1.2); Monocytes Percent Auto 5.7 % (2-11); Neutrophils Absolute Auto 6.4 x10*3/uL (2.0-8.3); Neutrophils Percent Auto 64.5 % (45-73); Platelet Count 395 X10*3/uL (160-400); Red Blood Count 4.48 X10*6/uL (4.20-5.50); Red Cell Distribution Width 15.6 % (11.0-16.0); White Blood Count 9.9 X10*3/uL (4.8-10.8)
[2023-07-04 11:00] LABS: Estimated Average Glucose 151 mg/dL; Hemoglobin A1c % 6.9 % (<6.0)
[2023-07-04 11:25] LABS: Alanine Aminotransferase 15 U/L (0-31); Albumin Level 4.1 g/dL (3.5-5.0); Alkaline Phosphatase 65 U/L (39-117); Anion Gap 14 (12-20); Aspartate Amino Transferase 16 U/L (5-31); Bilirubin Total 0.5 mg/dL (0.0-1.0); Blood Urea Nitrogen 15 mg/dL (9-16); C Reactive Protein 0.59 mg/dL (< or = 0.50); Carbon Dioxide 26 mmol/L (22-29); Chloride 104 mmol/L (96-108); Cholesterol 203 mg/dL (<200); Estimated Glomerular Filt Rate > 60; Glucose Random 144 mg/dL (60-115); HDL Cholesterol 37 mg/dL (>40); Iron 49 mcg/dL (30-160); LDL Cholesterol Calculated 145 mg/dL (<100); Percent Iron Saturation 12 % (15-50); Potassium 4.1 mmol/L (3.3-5.1); Sodium 140 mmol/L (135-145); Total Iron Binding Capacity 400 mcg/dL (228-428); Total Protein 7.2 g/dL (6.5-8.0); Triglycerides 109 mg/dL (<150); Unsaturated Iron Binding 351 ug/dL
[2023-07-04 11:42] LABS: Ferritin 15 ng/mL (10-250); Insulin 16 uU/mL (2-29); TSH reflex Free T4 2.36 uIU/mL (0.32-4.0); Vitamin D 25-OH Total 11.7 ng/mL (>30)
[2023-07-04 11:53] LABS: Folate 4.1 ng/mL (> or = 4.0); Vitamin B12 319 pg/mL (200-900)
[2023-07-05 16:29] LABS: Calcium (PTHI) 8.9 mg/dL (8.6-10.2); PTHI 91 pg/mL (16-77)
[2023-07-06 15:23] LABS: Zinc 70 mcg/dL (60-130)
[2023-07-07 15:24] LABS: Vitamin A 28 mcg/dL (38-98)
[2023-07-09 06:48] LABS: Vitamin B1 <6 nmol/L (8-30)
== END 2023-07-04 10:20 | disposition home or self-care (01) ==
LOC: HO.XRAY 10:19
PROVIDERS: PCP Internal Medicine; Visit Provider Physician Assistant
DX: Z01.818 Encounter for other preprocedural examination (principal); E66.01 Morbid (severe) obesity due to excess calories; I10 Essential (primary) hypertension; E11.65 Type 2 diabetes mellitus with hyperglycemia; Z98.84 Bariatric surgery status
CPT/HCPCS: 36415; 71046; 80053; 80061; 82306; 82607; 82728; 82746; 83036; 83525; 83540; 83970; 84425; 84443; 84590; 84630; 85025; 86140

== ENCOUNTER 2023-07-06 11:34 | Outpatient (AMB) | payer OTHER, SELFPAY ==
[2023-07-06 11:38] VITALS: BP 136/70; PULSE 88; O2SAT 98; BMI 46.5
--- NOTE | 2023-07-06 11:38 | MHC.PC.OV ---
Vital Signs 07/06/23 11:38 Height 5 ft 3.5 in Weight 267 lb BMI 46.5 BP 136/70 Blood Pressure Location Lt brachial Position Sitting Pulse 88 Pulse Source Pulse Oximeter Pulse Oximetry (%) 98 Oxygen Delivery Method Room Air Intake Visit Reasons: Follow up Allergies No Known Allergies Allergy (Verified 07/06/23 11:38) Medication List - Last Reconciled 07/06/23 by Cullen Mcallister MD albuterol sulfate 90 mcg/actuation (Ventolin HFA) 2 puffs inhalation Q4-6H PRN alcohol swabs (Alcohol Wipes) 1 pad topical DAILY blood pressure monitor (Blood Pressure Kit) As directed blood sugar diagnostic (FreeStyle Lite Strips) As directed check the BS QD blood-glucose meter (FreeStyle Lite Meter kit) As directed bupropion HCl (Wellbutrin XL) 150 mg PO QAM 30 days cholecalciferol (vitamin D3) 50 mcg PO DAILY clotrimazole 1% 1 appl topical BID 4 weeks dextroamphetamine-amphetamine 10 mg (Adderall) 10 mg PO BID PRN dextroamphetamine-amphetamine 30 mg ER (Adderall XR) 30 mg PO QAM dulaglutide (Trulicity) 0.75 mg (0.5 mL) subcut QWEEK iron,carbonyl-vitamin C 65 mg iron- 125 mg (Vitron-C) 1 tab PO BEDTIME lancets (FreeStyle Lancets) As directed check BS QD lorazepam (Ativan) 1 mg PO DAILY PRN venlafaxine ER 37.5 mg PO DAILY Tobacco use date assessed: 10/25/22 Dental Screening Dental Screen Date: 07/06/23 Did you have a dental visit in the last 12 months?: Yes Did you have a dental problem in the last 6 months where you did not have access to dental care?: No Was dental information given to patient?: Patient has dentist HPI Follow up HPI Details 43-year-old morbidly obese female with diabetes mellitus hypertension asthma ADHD coming in for follow-up. Last seen in January 2023 for physical exam patient is here for follow-up. Patient has been with weight management history of gastric lap band surgery in 2008 and was interested in conversion 2014 underwent exploratory laparoscopy and the band was removed patient has been started on Ozempic. n surgery planned after weight loss, will be seeing communications officer- and counselling also [facility] Medical History (Updated 07/06/23 @ 12:20 by Cullen Mcallister MD) Acute asthma exacerbation Asthmaticus, status UTI (urinary tract infection) URI (upper respiratory infection) TIA (transient ischemic attack) Tobacco abuse Obesity ADHD Surgical History (Updated 06/22/23 @ 14:04 by Danae Bonner PA-C) History of tooth extraction History of prior ablation treatment LAP-BAND surgery status Family History (Updated 01/24/23 @ 16:47 by Cullen Mcallister MD) Father Myocardial infarction History of quadruple bypass CKD (chronic kidney disease) Mother Healthy adult Paternal Grandmother Liver cancer Maternal Aunt Melanoma Maternal Grandmother Stroke Liver cancer Paternal Grandfather Myocardial infarction Paternal Uncle Myocardial infarction Social History (Updated 01/24/23 @ 16:48 by Cullen Mcallister MD) Household Members: Children Housing: House Do you presently have visiting nurse or other home services: No Alcohol intake: current Alcohol intake frequency: holidays/special occasions only Patient Tobacco Use Status: Former Tobacco user Tobacco use type: Cigarette Cigarettes Per Day: 5 e-Cigarette/Vaping Use: Never Used Second Hand Smoke Exposure: Yes Advance Directives Date on File: 02/10/22 service: No Current occupational status: employed Cognitive needs: No Hearing needs: No Vision needs: No Questionnaire PHQ-9 Over the last 2 weeks, how often have you been bothered by any of the following problems? 1. Little interest or pleasure in doing things: several days 2. Feeling down, depressed, or hopeless: several days 3. Trouble falling or staying asleep, or sleeping too much: several days 4. Feeling tired or having little energy: several days 5. Poor appetite or overeating: not at all 6. Feeling bad about yourself - or that you are a failure or have let yourself or your family down: not at all 7. Trouble concentrating on things, such as reading the newspaper or watching television: not at all 8. Moving or speaking so slowly that other people could have noticed. Or the opposite - being so fidgety or restless that you have been moving around a lot more than usual: not at all 9. Thoughts that you would be better off or of hurting yourself in some way: not at all Total score: 4 Depression Screening Interpretation: Negative Depression Screening Done: Yes Source: Developed by Drs. Jaskaran Oliver, Javon Jones and colleagues, with an educational magdiel from [employer]. Thrive Questionnaire Date Thrive assessed: 01/24/23 AUDIT C Alcohol Use Questionnaire (AUDIT-C) 1. How often do you have a drink containing alcohol?: Monthly or less 2. How many drinks containing alcohol do you have on a typical day when you are drinking?: 1 or 2 3. How often do you have six or more drinks on one occasion?: Never Total Score: 1 KENIA-7 AMB Questionnaire KENIA-7 Date KENIA - 7 assessed: 10/25/22 Source: Developed by Drs. Jaskaran Oliver, Marcie Esposito, Javon Pizano and colleagues, with an educational magdiel from [employer]. Physical exam (Primary Care) Vital Signs: Last Vital Signs Pulse 88 07/06/23 11:38 BP 136/70 07/06/23 11:38 Pulse Ox 98 07/06/23 11:38 Oxygen Delivery Method Room Air 07/06/23 11:38 BMI result Body Mass Index 46.5 Tobacco/Smoking Status: Tobacco use Status Tobacco use date assessed 10/25/22 07/06/23 11:39 Patient Tobacco Use Status Former Tobacco user 07/06/23 11:39 Tobacco use type Cigarette 07/06/23 11:39 e-Cigarette/Vaping Use Never Used 07/06/23 11:39 PHQ-9: PHQ-9 Score PHQ-9: Total score 4 07/06/23 16:22 Depression Screening Interpretation: Negative Thrive Assessment: Date of Thrive Assessment Date Thrive assessed 01/24/23 07/06/23 11:39 Const General: alert; No acute distress Eyes Conjunctivae: conjunctivae normal Resp Auscultation: clear to auscultation bilaterally Cardio Rate: regular rate Rhythm: regular rhythm GI Inspection: Yes normal to inspection Extrem General: Yes normal to inspection and No edema Assessment and Plan Assessment & Plan (1) LAP-BAND surgery status: Comment: lap band OR 2009 with exploration in 2016 to assess for issues followed by band release Code(s): Z98.84 - Bariatric surgery status Plan: Patient is being followed up by weight management. Planned laparoscopic sleeve gastrectomy (2) Morbid obesity: Code(s): E66.01 - Morbid (severe) obesity due to excess calories Plan: Continue with diet and exercise (3) Type 2 diabetes mellitus with hyperglycemia: Comment: January 2022, Target eye Code(s): E11.65 - Type 2 diabetes mellitus with hyperglycemia Plan: Decrease the amount of carbohydrate intake, pasta, bread, rice and potatoes are all sugar and that is aside from all the sweet stuff, remember that fruits are good but they are Sweet also. Hemoglobin A1c goal of less than 6.26 June 2023 6.9 (4) Hypertension: Code(s): I10 - Essential (primary) hypertension Plan: Patient not on any blood pressure medication (5) Hypercholesterolemia: Code(s): E78.00 - Pure hypercholesterolemia, unspecified Plan: Avoid fried foods, chicken skin, eggs, butter margarine, pastries and meat. Be it pork or beef they have a lot of cholesterol pill LDL goal of less than 100 and triglyceride of less than 150 (6) Generalized anxiety disorder: Code(s): F41.1 - Generalized anxiety disorder Plan: Continue with medications (7) Breast cancer screening by mammogram: Code(s): Z12.31 - Encounter for screening mammogram for malignant neoplasm of breast Plan: Reminded about mammogram (8) Folic acid deficiency: Code(s): E53.8 - Deficiency of other specified B group vitamins (9) Thoracic back pain: Code(s): M54.6 - Pain in thoracic spine Medications: New folic acid 1 mg PO DAILY 30 tabs 4RF E53.8 - Deficiency of other specified B group vitamins Changed From dulaglutide (Trulicity) 0.75 mg (0.5 mL) subcut QWEEK 2 mL 2RF E11.65 - Type 2 diabetes mellitus with hyperglycemia To dulaglutide 1.5 mg (0.5 mL) subcut QWEEK 2.5 mL 2RF 30 days E11.65 - Type 2 diabetes mellitus with hyperglycemia Refilled dextroamphetamine-amphetamine 30 mg ER (Adderall XR) 30 mg PO QAM 30 caps 0RF F90.0 - Attention-deficit hyperactivity disorder, predominantly inattentive type dextroamphetamine-amphetamine 10 mg (Adderall) administer doses at least 4-6 hours apart 10 mg PO BID PRN 60 tabs 0RF ADHD F90.9 - Attention-deficit hyperactivity disorder, unspecified type Coding Level of Care Code Est Pt Level 4 (80471) Diagnoses LAP-BAND surgery status Z98.84 Morbid obesity E66.01 Type 2 diabetes mellitus with hyperglycemia E11.65 Hypertension I10 Hypercholesterolemia E78.00 Generalized anxiety disorder F41.1 Breast cancer screening by mammogram Z12.31 Folic acid deficiency E53.8 Thoracic back pain M54.6 Additional Codes PHQ-9 - 85141 - PHQ-9 Billing: ([id number])
== END 2023-07-06 12:31 | disposition home or self-care (01) ==
PROVIDERS: PCP Internal Medicine; Visit Provider Internal Medicine
DX: E11.65 Type 2 diabetes mellitus with hyperglycemia (principal); E66.01 Morbid (severe) obesity due to excess calories; Z98.84 Bariatric surgery status; Z68.42 Body mass index [BMI] 45.0-49.9, adult; I10 Essential (primary) hypertension; E78.00 Pure hypercholesterolemia, unspecified; F41.1 Generalized anxiety disorder; E53.8 Deficiency of other specified B group vitamins; M54.6 Pain in thoracic spine
CPT/HCPCS: 99214

== ENCOUNTER → 2023-07-06 13:41 | Outpatient (BNVA) | payer OTHER, SELFPAY | PROVIDERS: PCP Internal Medicine; Visit Provider Dietitian, Registered | DX: E66.9 Obesity, unspecified (principal) | CPT/HCPCS: 97802 ==

== ENCOUNTER 2023-10-21 11:25 | Outpatient (AMB) | payer OTHER, SELFPAY ==
[2023-10-21 11:26] VITALS: BP 132/98; PULSE 101; O2SAT 97
--- NOTE | 2023-10-21 11:26 | A.OFFPC_ITS ---
Vital Signs 10/21/23 11:26 Height 5 ft 3.5 in BMI Reason not done Patient refused/unable BP 132/98 H Blood Pressure Location Lt brachial Position Sitting Pulse 101 H Pulse Source Pulse Oximeter Temp Source Skin Pulse Oximetry (%) 97 Oxygen Delivery Method Room Air Intake Visit Reasons: obesity, DM Intake Note: Patient is here to follow up on obseity, DM Automotive Welder Required: No Allergies No Known Allergies Allergy (Verified 10/21/23 11:26) Medication List - Last Reconciled 10/21/23 by Cullen Mcallister MD albuterol sulfate 90 mcg/actuation (Ventolin HFA) 2 puffs inhalation Q4-6H PRN alcohol swabs (Alcohol Wipes) 1 pad topical DAILY blood pressure monitor (Blood Pressure Kit) As directed blood sugar diagnostic (FreeStyle Lite Strips) As directed check the BS QD blood-glucose meter (FreeStyle Lite Meter kit) As directed bupropion HCl (Wellbutrin XL) 150 mg PO QAM 30 days cholecalciferol (vitamin D3) 50 mcg PO DAILY clotrimazole 1% 1 appl topical BID 4 weeks dextroamphetamine-amphetamine 10 mg (Adderall) 10 mg PO BID PRN dextroamphetamine-amphetamine 30 mg ER (Adderall XR) 30 mg PO QAM folic acid 1 mg PO DAILY iron,carbonyl-vitamin C 65 mg iron- 125 mg (Vitron-C) 1 tab PO BEDTIME lancets (FreeStyle Lancets) As directed check BS QD lisinopril 5 mg PO DAILY 30 days lorazepam (Ativan) 1 mg PO DAILY PRN metformin 500 mg PO DAILY thiamine HCl (vitamin B1) 50 mg PO DAILY venlafaxine ER 37.5 mg PO DAILY vitamin A palmitate 6,000 mcg (2 x 3,000 mcg (10,000 unit)) PO DAILY 2 weeks Tobacco use date assessed: 10/21/23 Dental Screening Dental Screen Date: 10/21/23 HPI obesity, DM HPI Details 43-year-old morbidly obese female with d iabetes mellitus . There was a planned laparoscopic sleeve gastrectomy patient also has hypertension hypercholesterolemia generalized anxiety disorder last seen in June 2023. has not gone to weight mgmt but does have plans. [facility] Medical History (Updated 07/06/23 @ 12:20 by Cullen Mcallister MD) Acute asthma exacerbation Asthmaticus, status UTI (urinary tract infection) URI (upper respiratory infection) TIA (transient ischemic attack) Tobacco abuse Obesity ADHD Surgical History (Updated 06/22/23 @ 14:04 by Danae Bonner PA-C) History of tooth extraction History of prior ablation treatment LAP-BAND surgery status Family History (Updated 01/24/23 @ 16:47 by Cullen Mcallister MD) Father Myocardial infarction History of quadruple bypass CKD (chronic kidney disease) Mother Healthy adult Paternal Grandmother Liver cancer Maternal Aunt Melanoma Maternal Grandmother Stroke Liver cancer Paternal Grandfather Myocardial infarction Paternal Uncle Myocardial infarction Social History (Updated 01/24/23 @ 16:48 by Cullen Mcallister MD) Household Members: Children Housing: House Do you presently have visiting nurse or other home services: No Alcohol intake: current Alcohol intake frequency: holidays/special occasions only Patient Tobacco Use Status: Former Tobacco user Tobacco use type: Cigarette Cigarettes Per Day: 5 e-Cigarette/Vaping Use: Never Used Second Hand Smoke Exposure: Yes Advance Directives Date on File: 02/10/22 service: No Current occupational status: employed Cognitive needs: No Hearing needs: No Vision needs: No Questionnaire Thrive Questionnaire Date Thrive assessed: 10/21/23 AUDIT C Alcohol Use Questionnaire (AUDIT-C) 1. How often do you have a drink containing alcohol?: Monthly or less 2. How many drinks containing alcohol do you have on a typical day when you are drinking?: 1 or 2 3. How often do you have six or more drinks on one occasion?: Never Total Score: 1 KENIA-7 AMB Questionnaire KENIA-7 Date KENIA - 7 assessed: 10/21/23 Source: Developed by Drs. Jaskaran Oliver, Marcie Esposito, Javon Pizano and colleagues, with an educational magdiel from [employer]. Physical exam (Primary Care) Vital Signs: Last Vital Signs Pulse 101 H 10/21/23 11:26 BP 132/98 H 10/21/23 11:26 Pulse Ox 97 10/21/23 11:26 Oxygen Delivery Method Room Air 10/21/23 11:26 Tobacco/Smoking Status: Tobacco use Status Tobacco use date assessed 10/21/23 10/21/23 11:35 Patient Tobacco Use Status Former Tobacco user 10/21/23 11:35 Tobacco use type Cigarette 10/21/23 11:35 e-Cigarette/Vaping Use Never Used 10/21/23 11:35 Thrive Assessment: Date of Thrive Assessment Date Thrive assessed 10/21/23 10/21/23 11:35 Const General: alert; No acute distress Eyes Conjunctivae: conjunctivae normal Resp Auscultation: clear to auscultation bilaterally Cardio Rate: regular rate Rhythm: regular rhythm GI Inspection: Yes normal to inspection Extrem General: Yes normal to inspection and No edema Results AMB Hemoglobin A1c AMB Hemoglobin A1c 7.3 % Last Edit by BROCK Azevedo on 10/21/23 11:39 Results Reviewed Results Reviewed: Laboratory Last Values Hgb A1c (Clinic) 7.3 % (4.0-6.0) H 10/21/23 09:03 Assessment and Plan Assessment & Plan (1) Type 2 diabetes mellitus with hyperglycemia: Comment: January 2022, Target eye Code(s): E11.65 - Type 2 diabetes mellitus with hyperglycemia Plan: Decrease the amount of carbohydrate intake, pasta, bread, rice and potatoes are all sugar and that is aside from all the sweet stuff, remember that fruits are good but they are Sweet also. Hemoglobin A1c goal of less than 6.5. Patient on Trulicity (2) Obesity: Code(s): E66.9 - Obesity, unspecified Qualifiers: Obesity type: due to excess calories Obesity classification: adult class 3 (BMI >= 40) Serious obesity comorbidity presence: with serious comorb idity Body mass index: BMI 45.0-49.9 Qualified Code(s): E66.01 - Morbid (severe) obesity due to excess calories; Z68.42 - Body mass index [BMI] 45.0- 49.9, adult Plan: Diet and exercise (3) Hypercholesterolemia: Code(s): E78.00 - Pure hypercholesterolemia, unspecified Plan: Avoid fried foods, chicken skin, eggs, butter margarine, pastries and meat. Be it pork or beef they have a lot of cholesterol LDL goal of less than 100 and triglyceride of less than 150 (4) Hypertension: Code(s): I10 - Essential (primary) hypertension Plan: Presently not on blood pressure medication (5) Breast cancer screening by mammogram: Code(s): Z12.31 - Encounter for screening mammogram for malignant neoplasm of breast Plan: Reminded about mammogram Orders: Orders Comprehensive Met. Panel 3 Months E78.00 - Pure hypercholesterolemia, unspecified Hemoglobin A1c 3 Months E78.00 - Pure hypercholesterolemia, unspecified AMB Hemoglobin A1c Today E11.65 - Type 2 diabetes mellitus with hyperglycemia Lipid Panel 3 Months E78.00 - Pure hypercholesterolemia, unspecified Referrals Psychiatry Referral F41.1 - Generalized anxiety disorder Medications: New tirzepatide (Mounjaro) 2.5 mg (0.5 mL) subcut QWEEK 4 weeks 2 mL 0RF E11.65 - Type 2 diabetes mellitus with hyperglycemia Refilled lisinopril 5 mg PO DAILY 30 days 90 tabs 1RF E11.65 - Type 2 diabetes mellitus with hyperglycemia Coding Level of Care Code Est Pt Level 4 (73722) Diagnoses Type 2 diabetes mellitus with hyperglycemia E11.65 Class 3 severe obesity due to excess calories with serious comorbidity and body mass index (BMI) of 45.0 to 49.9 in adult E66.01; Z68.42 Obesity type: due to excess calories Obesity classification: adult class 3 (BMI >= 40) Serious obesity comorbidity presence: with serious comorbidity Body mass index: BMI 45.0-49.9 Hypercholesterolemia E78.00 Hypertension I10 Breast cancer screening by mammogram Z12.31
== END 2023-10-21 12:07 | disposition home or self-care (01) ==
PROVIDERS: PCP Internal Medicine; Visit Provider Internal Medicine
DX: E11.65 Type 2 diabetes mellitus with hyperglycemia (principal); E66.01 Morbid (severe) obesity due to excess calories; Z68.42 Body mass index [BMI] 45.0-49.9, adult; E78.00 Pure hypercholesterolemia, unspecified; I10 Essential (primary) hypertension
CPT/HCPCS: 83036; 99214

== ENCOUNTER 2024-05-24 14:45 | Outpatient (AMB) | payer OTHER, SELFPAY ==
--- NOTE | 2024-05-24 14:52 | A.OFFPC_ITS ---
Vital Signs 05/24/24 14:59 Height 5 ft 3.5 in Weight 246 lb 2 oz BMI 42.9 BP 126/60 Blood Pressure Location Lt brachial Position Sitting Pulse 87 Pulse Source Pulse Oximeter Pulse Oximetry (%) 99 Oxygen Delivery Method Room Air Intake Visit Reasons: follow up Intake Note: Patient is here to follow up on DM, Asthma, Hypercholesterolemia, HTN. Well Services Operator Required: No Maintenance Representative: Not Required per policy Accompanied by: Self / Same As Patient Allergies No Known Allergies Allergy (Verified 05/24/24 14:58) Tobacco use date assessed: 05/24/24 Dental Screening Dental Screen Date: 10/21/23 HPI follow up HPI Details 44-year-old morbidly obese female with d iabetes mellitus hypercholesterolemia hypertension coming in for follow-up. Last seen in October and was advised mammogram. Noted 26 lb weight loss [facility] Medical History (Updated 05/24/24 @ 15:33 by Cullen Mcallister MD) Acute asthma exacerbation Asthmaticus, status UTI (urinary tract infection) URI (upper respiratory infection) TIA (transient ischemic attack) Tobacco abuse Obesity ADHD Surgical History History of tooth extraction History of prior ablation treatment LAP-BAND surgery status Family History Father Myocardial infarction History of quadruple bypass CKD (chronic kidney disease) Mother Healthy adult Paternal Grandmother Liver cancer Maternal Aunt Melanoma Maternal Grandmother Stroke Liver cancer Paternal Grandfather Myocardial infarction Paternal Uncle Myocardial infarction Social History Household Members: Children Housing: House Do you presently have visiting nurse or other home services: No Alcohol intake: current Alcohol intake frequency: holidays/special occasions only Patient Tobacco Use Status: Former Tobacco user Tobacco use type: Cigarette Cigarettes Per Day: 5 e-Cigarette/Vaping Use: Never Used Second Hand Smoke Exposure: Yes Advance Directives Date on File: 02/10/22 service: No Current occupational status: employed Current occupational exposures/hazards: No Cognitive needs: No Hearing needs: No Vision needs: No Questionnaire PHQ-9 Over the last 2 weeks, how often have you been bothered by any of the following problems? 1. Little interest or pleasure in doing things: not at all 2. Feeling down, depressed, or hopeless: not at all 3. Trouble falling or staying asleep, or sleeping too much: not at all 4. Feeling tired or having little energy: not at all 5. Poor appetite or overeating: not at all 6. Feeling bad about yourself - or that you are a failure or have let yourself or your family down: not at all 7. Trouble concentrating on things, such as reading the newspaper or watching television: not at all 8. Moving or speaking so slowly that other people could have noticed. Or the opposite - being so fidgety or restless that you have been moving around a lot more than usual: not at all 9. Thoughts that you would be better off or of hurting yourself in some w ay: not at all Total score: 0 Depression Screening Interpretation: Negative Depression Screening Done: Yes Source: Developed by Drs. Jaskaran Oliver, Marcie Esposito, Javon Pizano and colleagues, with an educational magdiel from [employer]. Thrive Questionnaire Date Thrive assessed: 10/21/23 Are you currently unemployed and looking for a job?: No KENIA-7 AMB Questionnaire KENIA-7 Date KENIA - 7 assessed: 10/21/23 Source: Developed by Drs. Jaskaran Oliver, Marcie Esposito, Javon Pizano and colleagues, with an educational magdiel from [employer]. Physical exam (Primary Care) Vital Signs: Last Vital Signs Pulse 87 05/24/24 14:59 BP 126/60 05/24/24 14:59 Pulse Ox 99 05/24/24 14:59 Oxygen Delivery Method Room Air 05/24/24 14:59 BMI result Body Mass Index 42.9 Tobacco/Smoking Status: Tobacco use Status Tobacco use date assessed 05/24/24 05/24/24 15:12 Patient Tobacco Use Status Former Tobacco user 05/24/24 15:12 Tobacco use type Cigarette 05/24/24 15:12 e-Cigarette/Vaping Use Never Used 05/24/24 15:12 PHQ-9: PHQ-9 Score PHQ-9: Total score 0 05/24/24 15:12 Depression Screening Interpretation: Negative Thrive Assessment: Date of Thrive Assessment Date Thrive assessed 10/21/23 05/24/24 15:12 Const General: alert; No acute distress Eyes Conjunctivae: conjunctivae normal Resp Auscultation: clear to auscultation bilaterally Cardio Rate: regular rate Rhythm: regular rhythm GI Inspection: Yes normal to inspection Extrem General: Yes normal to inspection and No edema Results AMB Hemoglobin A1c AMB Hemoglobin A1c 6.2 % Last Edit by BROCK Smyth on 05/24/24 15:15 Results Reviewed Results Reviewed: Laboratory Last Values Hgb A1c (Clinic) 6.2 % (4.0-6.0) H 05/24/24 14:52 Coding Level of Care Code Est Pt Level 4 (53333) Diagnoses Type 2 diabetes mellitus with hyperglycemia E11.65 Hypercholesterolemia E78.00 Hypertension I10 Morbid obesity E66.01 Assessment & Plan Assessment & Plan (1) Type 2 diabetes mellitus with hyperglycemia: Comment: January 2022, Target eye Code(s): E11.65 - Type 2 diabetes mellitus with hyperglycemia Category: Medical Plan: Decrease the amount of carbohydrate intake, pasta, bread, rice and potatoes are all sugar and that is aside from all the sweet stuff, remember that fruits are good but they are Sweet also. Hemoglobin A1c goal of less than 6.5. Patient is taking metformin 500 mg once a day and Chika noted 27 lb weight loss (2) Hypercholesterolemia: Code(s): E78.00 - Pure hypercholesterolemia, unspecified Category: Medical Plan: Avoid fried foods, chicken skin, eggs, butter margarine, pastries and meat. Be it pork or beef they have a lot of cholesterol LDL goal of less than 100 and triglyceride of less than 150. Patient will need blood work (3) Hypertension: Code(s): I10 - Essential (primary) hypertension Category: Medical Plan: Continue with blood pressure medication. Decrease salt intake and exercise on lisinopril 5 mg once a day (4) Morbid obesity: Code(s): E66.01 - Morbid (severe) obesity due to excess calories Category: Medical Plan: Continue with diet and exercise Orders: Orders Complete Blood Count Auto Diff Today E11.65 - Type 2 diabetes mellitus with hyperglycemia Comprehensive Met. Panel Today E11.65 - Type 2 diabetes mellitus with hypergl ycemia Free T4 (Free Thyroxine) Today E11.65 - Type 2 diabetes mellitus with hyperglycemia Lipid Panel Today E11.65 - Type 2 diabetes mellitus with hyperglycemia, E78.00 - Pure hypercholesterolemia, unspecified Ferritin Today E11.65 - Type 2 diabetes mellitus with hyperglycemia Vitamin D 25-OH Total Today E11.65 - Type 2 diabetes mellitus with hyperglycemia Microalbumin, Random (w Creat) Today E11. - Type 2 diabetes mellitus with hyperglycemia AMB Hemoglobin A1c Today E11. - Type 2 diabetes mellitus with hyperglycemia Thyroid Stimulating Hormone Today E11.65 - Type 2 diabetes mellitus with hyperglycemia Vitamin B12 and Folate Today E11.65 - Type 2 diabetes mellitus with hyperglycemia Reticulocyte Count Today E11. - Type 2 diabetes mellitus with hyperglycemia IRON PROFILE Today E11. - Type 2 diabetes mellitus with hyperglycemia Creatinine Urine Today E11.65 - Type 2 diabetes mellitus with hyperglycemia Medications: Changed From tirzepatide 7.5 mg (0.5 mL) subcut QWEEK 30 days 2.5 mL 1RF . - Type 2 diabetes mellitus with hyperglycemia To tirzepatide 10 mg (0.5 mL) subcut QWEEK 30 days 2.5 mL 3RF E1165 - Type 2 diabetes mellitus with hyperglycemia
[2024-05-24 14:59] VITALS: BP 126/60; PULSE 87; O2SAT 99; BMI 42.9
== END 2024-05-24 15:45 | disposition home or self-care (01) ==
PROVIDERS: PCP Internal Medicine; Visit Provider Internal Medicine
DX: E11.65 Type 2 diabetes mellitus with hyperglycemia (principal); E66.813 Obesity, class 3; Z68.41 Body mass index [BMI] 40.0-44.9, adult; E78.00 Pure hypercholesterolemia, unspecified; I10 Essential (primary) hypertension

== ENCOUNTER → 2024-05-24 14:45 | Outpatient (BNVA) | payer OTHER, SELFPAY | PROVIDERS: PCP Internal Medicine; Visit Provider Internal Medicine | DX: E11.65 Type 2 diabetes mellitus with hyperglycemia (principal); E78.00 Pure hypercholesterolemia, unspecified; E66.01 Morbid (severe) obesity due to excess calories; I10 Essential (primary) hypertension; Z71.3 Dietary counseling and surveillance | CPT/HCPCS: 83036; 99212 ==

== ENCOUNTER 2024-12-24 09:34 | Outpatient (AMB) | payer OTHER, SELFPAY ==
--- NOTE | 2024-12-24 09:42 | A.OFFPC_ITS ---
Vital Signs 12/24/24 09:43 Height 5 ft 3.5 in Weight 247 lb 2 oz BMI 43.1 BP 120/60 Blood Pressure Location Lt brachial Position Sitting Pulse 89 Pulse Source Pulse Oximeter Temp 97.3 F Temp Source Temporal Artery Scan Pulse Oximetry (%) 98 Oxygen Delivery Method Room Air Intake Visit Reasons: Med review Intake Note: Patient is here to follow up on Med review and refill. 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: Not Required per policy Accompanied by: Self / Same As Patient Allergies No Known Allergies Allergy (Verified 12/24/24 09:45) Medication List - Last Reconciled 12/24/24 by Annette Lee PA-C albuterol sulfate 90 mcg/actuation (Ventolin HFA) 2 puffs inhalation Q4-6H PRN blood pressure monitor (Blood Pressure Kit) As directed blood sugar diagnostic (FreeStyle Lite Strips) As directed check the BS QD blood-glucose meter (FreeStyle Lite Meter kit) As directed bupropion HCl XL (Wellbutrin XL) 150 mg PO QAM 30 days cholecalciferol (vitamin D3) 50 mcg PO DAILY dextroamphetamine-amphetamine 10 mg (Adderall) 10 mg PO BID PRN dextroamphetamine-amphetamine 30 mg ER (Adderall XR) 30 mg PO QAM iron,carbonyl-vitamin C 65 mg iron- 125 mg (Vitron-C) 1 tab PO BEDTIME lancets (FreeStyle Lancets) As directed check BS QD lisinopril 5 mg PO DAILY 30 days lorazepam (Ativan) 1 mg PO DAILY PRN metformin 500 mg PO DAILY tirzepatide 12.5 mg (0.5 mL) subcut QWEEK 30 days venlafaxine ER 37.5 mg PO DAILY Tobacco use date assessed: 12/24/24 Dental Screening Dental Screen Date: 12/24/24 Did you have a dental visit in the last 12 months?: Yes Did you have a dental problem in the last 6 months where you did not have access to dental care?: No Was dental information given to patient?: Patient has dentist HPI Med review HPI Details 44-year-old female with past medical his tory of asthma, ADHD, generalized anxiety disorder, diabetes mellitus, hypercholesterolemia, hypertension last seen 05/2024 coming in for medication review. Presenting with a follow-up on diabetes management. Known case of Type 2 Diabetes Mellitus with prior management using Metformin; discontinued since May post-report of controlled numbers but has restarted Metoformin. Manages diabetes with Tirzepatide, with concerns over plateauing despite 30-pound weight loss. Exercise routine generally includes daily walks lasting 30 to 45 minutes, providing minimal recent weight variations. Depression and anxiety under previous prescription of Wellbutrin and Venlafaxine, with symptomatic withdrawal noted due to recent missed doses. ADHD well-managed with Adderall; continuous same dosage over a long-term period. Asthma controlled on Albuterol usage on an as-needed basis, anticipates the need for a new prescription with the current inhaler being expiring soon. [facility] Medical History Acute asthma exacerbation Asthmaticus, status UTI (urinary tract infection) URI (upper respiratory infection) TIA (transient ischemic attack) Tobacco abuse Obesity ADHD Surgical History History of tooth extraction History of prior ablation treatment LAP-BAND surgery status Family History Father Myocardial infarction History of quadruple bypass CKD (chronic kidney disease) Mother Healthy adult Paternal Grandmother Liver cancer Maternal Aunt Melanoma Maternal Grandmother Stroke Liver cancer Paternal Grandfather Myocardial infarction Paternal Uncle Myocardial infarction Social History Household Members: Children Housing: House Do you presently have visiting nurse or other home services: No Alcohol intake: current Alcohol intake frequency: holidays/special occasions only Patient Tobacco Use Status: Former Tobacco user Tobacco use type: Cigarette Cigarettes Per Day: 5 e-Cigarette/Vaping Use: Never Used Second Hand Smoke Exposure: Yes Advance Directives Date on File: 02/10/22 service: No Current occupational status: employed Current occupational exposures/hazards: No Cognitive needs: No Hearing needs: No Vision needs: No Questionnaire PHQ-9 Over the last 2 weeks, how often have you been bothered by any of the following problems? 1. Little interest or pleasure in doing things: not at all 2. Feeling down, depressed, or hopeless: not at all 3. Trouble falling or staying asleep, or sleeping too much: not at all 4. Feeling tired or having little energy: several days 5. Poor appetite or overeating: not at all 6. Feeling bad about yourself - or that you are a failure or have let yourself or your family down: not at all 7. Trouble concentrating on things, such as reading the newspaper or watching television: several days 8. Moving or speaking so slowly that other people could have noticed. Or the opposite - being so fidgety or restless that you have been moving around a lot more than usual: not at all 9. Thoughts that you would be better off or of hurting yourself in some way: not at all Total score: 2 Depression Screening Interpretation: Negative Depression Screening Done: Yes Source: Developed by Drs. Jaskaran Oliver, Marcie Esposito, Javon Pizano and colleagues, with an educational magdiel from [employer]. Thrive Questionnaire Date Thrive assessed: 12/24/24 I am a: Patient What is your living situation today?: I have a steady place to live Within the past 12 months, did the food you bought not last and you didn't have the money to get more?: Never true Within the past 12 months, did you worry whether your food would run out before you got money to buy more?: Never true Do you have trouble paying for medicines?: No Do you have trouble getting transportation to medical appointments?: No Do you have trouble paying your heating and electricity bill?: No Do you have trouble taking care of your child, family member or friend?: No Do you have trouble with day-to-day activities such as bathing, preparing meals, shopping, managing finances, etc.?: No Are you currently unemployed and looking for a job?: No Are you interested in more education?: No Please select the resources that you would like help with: None Currently or been in a relationship where the following occur: No concerns r eported THRIVE Score: 0 AUDIT C Alcohol Use Questionnaire (AUDIT-C) 1. How often do you have a drink containing alcohol?: 2-4 times a month 2. How many drinks containing alcohol do you have on a typical day when you are drinking?: 1 or 2 3. How often do you have six or more drinks on one occasion?: Never Total Score: 2 Score Reviewed/Action Taken: Yes KENIA-7 AMB Questionnaire KENIA-7 Date KENIA - 7 assessed: 12/24/24 Feeling nervous, anxious, or on edge: 1 = Several days Not being able to stop or control worryin = Several days Worrying too much about different things: 1 = Several days Trouble relaxin = Not at all Being so restless that it is hard to sit still: 0 = Not at all Becoming easily annoyed or irritable: 1 = Several days Feeling afraid as if something awful might happen: 0 = Not at all Total KENIA-7 score (0-4 normal; 5-9 mild; 10-14 moderate; 15-21 severe): 4 Source: Developed by Drs. Jaskaran Oliver, Marcie Esposito, Javon Pizano and colleagues, with an educational magdiel from [employer]. KENIA-7 Assessment Billing KENIA-7 Assessment Tool: KENIA-7 Assessment 32433 Review of Systems Const Denies body aches, Denies chills, Denies fever(s), Denies headache(s) and Denies poor appetite Eyes Reports no additional complaints ENT Denies dysphagia, Denies dizziness, Denies headache(s) and Denies odynophagia Card Denies chest pain, Denies syncope, Denies edema, Denies irregular heart rhythm, Denies lightheadedness and Denies dyspnea Resp Denies cough and Denies dyspnea GI Denies abdominal pain, Denies constipation, Denies dysphagia, Denies diarrhea, Denies nausea, Denies odynophagia and Denies vomiting Reports no additional complaints Musc Reports no additional complaints and Denies abnormal gait Skin/Breast Reports system reviewed and no additional complaints, except as documented Neuro Denies abnormal gait, Denies dizziness, Denies syncope and Denies headache(s) Psych Reports no additional complaints Physical exam (Primary Care) Vital Signs: Last Vital Signs Temp 97.3 F 12/24/24 09:43 Pulse 89 12/24/24 09:43 BP 120/60 12/24/24 09:43 Pulse Ox 98 12/24/24 09:43 Oxygen Delivery Method Room Air 12/24/24 09:43 BMI result Body Mass Index 43.1 Tobacco/Smoking Status: Tobacco use Status Tobacco use date assessed 12/24/24 12/24/24 09:44 Patient Tobacco Use Status Former Tobacco user 12/24/24 09:44 Tobacco use type Cigarette 12/24/24 09:44 e-Cigarette/Vaping Use Never Used 12/24/24 09:44 PHQ-9: PHQ-9 Score PHQ-9: Total score 2 12/24/24 09:46 Depression Screening Interpretation: Negative Thrive Assessment: Date of Thrive Assessment Date Thrive assessed 12/24/24 12/24/24 09:44 Currently or been in a relationship where the following occur: No concerns reported Const General: cooperative, healthy appearing, comfortable and no acute distress Orientation/consciousness: patient oriented x3 HENMT Head: Yes normocephalic Ears: hearing grossly normal bilaterally General nose exam: Normal external nose present Eyes General: appearance normal, both eyes and all related structures Conjunctivae: conjunctivae normal Neck Neck: Yes full ROM and Yes no lymphadenopathy Resp Effort & Inspection: normal respiratory effort Auscultation: clear to auscultation bilaterally, no crackles, no rales, no rhonchi and no wheezes Cardio Rate: regular rate Rhythm: regular rhythm Skin General skin exam: no rashes or lesions noted Neuro General: patient oriented x3 Gait exam (Neuro): Normal gait present Extrem General: Yes normal to inspection, Yes full ROM and No edema Psych Affect: normal affect Attitude: cooperative Insight: Good insight present (Psych) Judgement: Good judgement present (Psych) Coding Level of Care Code Est Pt Level 3 (23971) Diagnoses Primary hypertension I10 Hypertension type: primary hypertension Mild intermittent asthma with acute exacerbation J45.21 Asthma severity: mild Asthma persistence: intermittent Asthma complication type: with acute exacerbation Type 2 diabetes mellitus with hyperglycemia, without long-term current use of insulin E11.65 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: without sawmill or timber yard worker use Attention deficit hyperactivity disorder (ADHD), predominantly inattentive type F90.0 Attention deficit-hyperactivity disorder type: predominantly inattentive Class 3 severe obesity due to excess calories with serious comorbidity and body mass index (BMI) of 45.0 to 49.9 in adult E66.01; Z68.42 Body mass index: BMI 45.0-49.9 Obesity classification: adult class 3 (BMI >= 40) Obesity type: due to excess calories Serious obesity comorbidity presence: with serious comorbidity Additional Codes KENIA-7 Assessment Billing - KENIA-7 Assessment Tool: KENIA-7 Assessment 17281 ([id number]) Assessment & Plan Assessment & Plan (1) Hypertension: Code(s): I10 - Essential (primary) hypertension Category: Medical Qualifiers: Hypertension type: primary hypertension Qualified Code(s): I10 - Essential (primary) hypertension Plan: Continue on current blood pressure medication. Avoid salt intake and encourage h ealthy diet and regular exercise. (2) Asthma: Code(s): J45.909 - Unspecified asthma, uncomplicated Category: Medical Qualifiers: Asthma severity: mild Asthma persistence: intermittent Asthma complication type: with acute exacerbation Qualified Code(s): J45.21 - Mild intermittent asthma with (acute) exacerbation Plan: Asthma currently controlled on present medications. Continue on albuterol as needed.? Avoid triggers such as allergies. (3) Type 2 diabetes mellitus with hyperglycemia: Comment: January 2022, [facility] eye Code(s): E11.65 - Type 2 diabetes mellitus with hyperglycemia Category: Medical Qualifiers: Diabetes mellitus alf insulin use: without sawmill or timber yard worker use Qualified Code(s): E11.65 - Type 2 diabetes mellitus with hyperglycemia Plan: Decrease the amount of carbohydrates such as pasta, bread, rice, and potatoes and limit the amount of sweets. Although fruits are generally healthy they should be eaten in moderation as they are still high in sugar. Hemoglobin A1c goal of less than 7%. Ordered for updated blood work including repeat A1c. Advised patient we will not increase the Mounjaro until A1c in liver tests have been obtained. Patient agrees to have blood work this week (4) ADHD: Code(s): F90.9 - Attention-deficit hyperactivity disorder, unspecified type Category: Medical Qualifiers: Attention deficit-hyperactivity disorder type: predominantly inattentive Qualified Code(s): F90.0 - Attention-deficit hyperactivity disorder, predominantly inattentive type Plan: Continue on Adderall as prescribed by Dr. Mcallister. (5) Obesity: Code(s): E66.9 - Obesity, unspecified Category: Medical Qualifiers: Body mass index: BMI 45.0-49.9 Obesity classification: adult class 3 (BMI >= 40) Obesity type: due to excess calories Serious obesity comorbidity presence: with serious comorbidity Qualified Code(s): E66.01 - Morbid (severe) obesity due to excess calories; Z68.42 - Body mass index [BMI] 45.0-49.9, adult Plan: Healthy diet and regular exercise is encouraged. She is currently using Mounjaro for weight loss as well as diabetic management. Advised patient we will not increase the dose unless blood work has been obtained. Plan The management strategy includes monitoring the patient?s current diabetes regimen, using Tirzepatide with renewed focus on A1c and liver function testing to optimize the control and adjustment of medications. Continued Adderall dosage is maintained due to longstanding favorable ADHD symptom management. Depressive symptoms arising from recalls of missed Venlafaxine and Wellbutrin doses will require resumption under structured guidance. Weight monitoring as per insurance guidelines is noted, with ensured follow-up appointments for weight checks and broader health maintenance. This note was constructed using voice recognition software. While every effort has been made to ensure accuracy and patrol commander, still areas may have been included sometimes these areas may affect the content or meeting of the given symptoms. Total time spent caring for the patient today was 20 minutes. This includes time spent before the visit reviewing the chart, time spent during the visit, and time spent after the visit and documentation. Patient was informed and verbally consented to the use of an ambient scribe for clinic note documentation during this visit. Orders: Orders Complete Blood Count Auto Diff Today E11.65 - Type 2 diabetes mellitus with hyperglycemia Ferritin Today E11.65 - Type 2 diabetes mellitus with hyperglycemia Hemoglobin A1c Today E78.00 - Pure hypercholesterolemia, unspecified IRON PROFILE Today E11.65 - Type 2 diabetes mellitus with hyperglycemia Reticulocyte Count Today E11.65 - Type 2 diabetes mellitus with hyperglycemia Vitamin D 25-OH Total Today E11.65 - Type 2 diabetes mellitus with hyperglycemia Comprehensive Met. Panel Today E78.00 - Pure hypercholesterolemia, unspecified Creatinine Urine Today E11.65 - Type 2 diabetes mellitus with hyperglycemia Free T4 (Free Thyroxine) Today E11.65 - Type 2 diabetes mellitus with hyperglycemia Lipid Panel Today E78.00 - Pure hypercholesterolemia, unspecified Microalbumin, Random (w Creat) Today E11.65 - Type 2 diabetes mellitus with hyperglycemia Thyroid Stimulating Hormone Today E11.65 - Type 2 diabetes mellitus with hyperglycemia Vitamin B12 and Folate Today E11.65 - Type 2 diabetes mellitus with hyperglycemia Medications: Refilled lisinopril 5 mg PO DAILY 30 days 90 tabs 1RF E11.65 - Type 2 diabetes mellitus with hyperglycemia lorazepam (Ativan) 1-2 a month 1 mg PO DAILY PRN 30 tabs 0RF anxiety metformin 500 mg PO DAILY 90 tabs 1RF bupropion HCl XL (Wellbutrin XL) 150 mg PO QAM 30 days 90 tabs 1RF F41.1 - Generalized anxiety disorder albuterol sulfate 90 mcg/actuation (Ventolin HFA) 2 puffs inhalation Q4-6H PRN 8.5 grams 0RF shortness of breath or wheezing I10 - Essential (primary) hypertension dextroamphetamine-amphetamine 10 mg (Adderall) administer doses at least 4-6 hours apart 10 mg PO BID PRN 60 tabs 0RF ADHD F90.9 - Attention-deficit hyperactivity disorder, unspecified type dextroamphetamine-amphetamine 30 mg ER (Adderall XR) 30 mg PO QAM 30 caps 0RF F90.0 - Attention-deficit hyperactivity disorder, predominantly inattentive type venlafaxine ER 37.5 mg PO DAILY 90 caps 1RF F41.1 - Generalized anxiety disorder
[2024-12-24 09:43] VITALS: BP 120/60; PULSE 89; TEMP 36.3; O2SAT 98; BMI 43.1
== END 2024-12-24 10:07 | disposition home or self-care (01) ==
LOC: HO.HMCH 09:35
PROVIDERS: PCP Internal Medicine
DX: I10 Essential (primary) hypertension (principal); E11.65 Type 2 diabetes mellitus with hyperglycemia; E66.01 Morbid (severe) obesity due to excess calories; Z68.42 Body mass index [BMI] 45.0-49.9, adult; J45.21 Mild intermittent asthma with (acute) exacerbation; F90.0 Attention-deficit hyperactivity disorder, predominantly inattentive type

== ENCOUNTER → 2024-12-24 09:34 | Outpatient (BNVA) | payer OTHER, SELFPAY | PROVIDERS: PCP Internal Medicine | DX: I10 Essential (primary) hypertension (principal); J45.21 Mild intermittent asthma with (acute) exacerbation; E11.65 Type 2 diabetes mellitus with hyperglycemia; F90.0 Attention-deficit hyperactivity disorder, predominantly inattentive type; E66.01 Morbid (severe) obesity due to excess calories; Z68.42 Body mass index [BMI] 45.0-49.9, adult; Z79.899 Other long term (current) drug therapy | CPT/HCPCS: 96127 ==